=== PATIENT | male | born 1985 | race Caucasian/White ===

== ENCOUNTER 2023-01-21 19:59 | Inpatient (IN) | payer BC, MEDICAID ==
--- NOTE | 2023-01-21 21:30 | ED ---
General Adult HPI - General Chief complaint: Psychiatric Symptoms Stated complaint: Petition Time Seen by Provider: 01/21/23 21:09 Source: patient, police Mode of arrival: ambulatory Limitations: no limitations - History of Present Illness Initial comments: Dictation was produced using [email or web address] dictation software. please excuse any grammatical, word or spelling errors. Chief Complaint: 37-year-old male petition by police for suicidal homicidal behavior History of Present Illness: 37-year-old male presents emergency department for s uicidal and homicidal behavior. Patient allegedly just found out that his ex- was cheating on him with a family friend. He sent pitchers of a gun to his ex-. Enforcement was called and patient was brought to the ER. Patient's petition by [employer] police. Patient at the bedside denies any suicidal or homicidal behavior. Denies any visual or auditory hallucinations. Patient has no medical complaints The ROS documented in this emergency department record has been reviewed and con firmed by me. Those systems with pertinent positive or negative responses have been documented in the HPI. All other systems are other negative and/or noncontributory. PHYSICAL EXAM: General Impression: Alert and oriented x3, not in acute distress HEENT: Normocephalic atraumatic, extra-ocular movements intact, pupils equal and reactive to light bilaterally, mucous membranes moist. Cardiovascular: Heart regular rate and rhythm Chest: Able to complete full sentences, no retractions, no tachypnea Musculoskeletal: Pulses present and equal in all extremities, no peripheral edema Motor: no focal deficits noted Neurological: CN II-XII grossly intact, no focal motor or sensory deficits noted Skin: Intact with no visualized rashes Psych: Flat affect ED course: 37-year-old male presents to the emergency department for suicidal and homicidal behavior signs upon arrival are within acceptable limits. Physical examination is benign. Nursing notes and chart review was performed Was pt. sent in by a medical professional or institution (, PA, SALESFORCE CONSULTANT, urgent care, hospital, or prison...) When possible be specific @ -No Did you speak to anyone other than the patient for history (EMS, parent, family, police, friend...)? What history was obtained from this source @ -Law enforcement Did you review nursing and triage notes (agree or disagree)? Why? @ -I reviewed and agree with nursing and triage notes Were old charts reviewed (outside hosp., previous admission, EMS record, old EKG, old radiological studies, urgent care reports/EKG's, prison records)? Report findings @ -No old charts were reviewed Differential Diagnosis (chest pain, altered mental status, abdominal pain women, abdominal pain men, vaginal bleeding, musculoskeletal, weakness, fever, dyspnea, syncope, headache, dizziness, GI bleed, back pain, seizure, CVA, palpatations, mental health)? @ -Differential Mental Health: Depression, anxiety, bipolar, psychosis, schizophrenia, borderline personality, situational depression, adjustment disorder, behavioral disorder, brain tumor, malingering, substance abuse, encephalopathy, medication reaction, dementia, hypothyroidism, degenerative neurologic disorder, lupus.... This is not meant to be all-inclusive list EKG interpreted by me (3pts min.). @ -None done X-rays interpreted by me (1pt min.). @ -None done CT interpreted by me (1pt min.). @ -None done U/S interpreted by me (1pt. min.). @ -None done What testing was considered but not performed or refused? (CT, X-rays, U/S, labs)? Why? @ -None What meds were considered but not given or refused? Why? @ -None Did you discuss the management of the patient with other professionals (professionals i.e. , PA, SALESFORCE CONSULTANT, lab, RT, psych nurse, social service liaison, product lister, teacher, accounts officer, cyanide case hardener)? Give summary @ -No Was smoking cessation discussed for >3mins.? @ -No Was critical care preformed (if so, how long)? @ -No Were there social determinants of health that impacted care today? How? (Homelessness, low income, unemployed, alcoholism, drug addiction, transportation, low edu. Level, literacy, decrease access to med. care, correction, rehab)? @ -No Was there de-escalation of care discussed even if they declined (Discuss DNR or withdrawal of care, Hospice)? DNR status @ -No What co-morbidities impacted this encounter? (DM, HTN, Smoking, COPD, CAD, Cancer, CVA, ARF, Chemo, Hep., AIDS, mental health diagnosis, sleep apnea, morbid obesity)? @ -None Was patient admitted / discharged? Hospital course, mention meds given and route, prescriptions, significant lab abnormalities, going to OR and other pertinent info. @ -37 Year-old male presents with suicidal behavior. Patient evaluated by EPS and be admitted to inpatient psychiatric unit. Undiagnosed new problem with uncertain prognosis? @ -No Drug Therapy requiring intensive monitoring for toxicity (Heparin, Nitro, Insulin, Cardizem)? @ -No Were any procedures done? @ -No Diagnosis/symptom? Acute, or Chronic, or Acute on Chronic? Uncomplicated (without systemic symptoms) or Complicated (systemic symptoms)? @ -1. Suicidal behavior Side effects of treatment? @ -No Exacerbation, Progression, or Severe Exacerbation? @ -No Poses a threat to life or bodily function? How? (Chest pain, [place], [place], pneumonia, PE, COPD, DKA, ARF, appy, cholecystitis, CVA, Diverticulitis, Homicidal, Suicidal, threat to staff... and all critical care pts) @ -yes - Related Data Home Medications Medication Instructions Recorded Confirmed No Known Home Medications 01/21/23 01/21/23 Allergies Allergy/AdvReac Type Severity Reaction Status Date / Time cat dander Allergy Cough Verified 01/21/23 20:13 dog dander Allergy Cough Verified 01/21/23 20:13 WHITE BIRCH TREE BARK Allergy Unknown Uncoded 01/21/23 20:13 Review of Systems ROS Statement: Those systems with pertinent positive or pertinent negative responses have been documented in the HPI. ROS Other: All systems not noted in ROS Statement are negative. Past Medical History Past Medical History: Diabetes Mellitus Additional Past Medical History / Comment(s): heart murmur History of Any Multi-Drug Resistant Organisms: None Reported Past Surgical History: Adenoidectomy, Orthopedic Surgery Additional Past Surgical History / Comment(s): tendon release rt arm Past Anesthesia/Blood Transfusion Reactions: No Reported Reaction Past Psychological History: No Psychological Hx Reported Smoking Status: Current every day smoker Past Alcohol Use History: Occasional Past Drug Use History: Marijuana - Past Family History Mother Family Medical History: Diabetes Mellitus General Exam Limitations: no limitations Course Vital Signs 01/21/23 01/21/23 20:08 22:51 Temperature 98.3 F Pulse Rate 101 H 98 Respiratory 22 18 Rate Blood Pressure 135/75 132/80 O2 Sat by Pulse 96 97 Oximetry Medical Decision Making - Lab Data Result diagrams: 01/21/23 21:01 01/21/23 21: Lab Results 01/21/23 01/21/23 01/21/23 Range/Units 21:01 21:01 21:01 WBC 11.8 H (3.8-10.6) k/uL RBC 5.69 (4.30-5.90) m/uL Hgb 17.3 (13.0-17.5) gm/dL Hct 50.5 (39.0-53.0) % MCV 88.7 (80.0-100.0) fL MCH 30.5 (25.0-35.0) pg MCHC 34.4 (31.0-37.0) g/dL RDW 12.8 (11.5-15.5) % Plt Count 257 (150-450) k/uL MPV 8.5 Neutrophils % 46 % Lymphocytes % 46 % Monocytes % 4 % Eosinophils % 2 % Basophils % 1 % Neutrophils # 5.4 (1.3-7.7) k/uL Lymphocytes # 5.5 H (1.0-4.8) k/uL Monocytes # 0.5 (0-1.0) k/uL Eosinophils # 0.2 (0-0.7) k/uL Basophils # 0.1 (0-0.2) k/uL Sodium 141 (137-145) mmol/L Potassium 3.8 (3.5-5.1) mmol/L Chloride 102 (98-107) mmol/L Carbon Dioxide 27 (22-30) mmol/L Anion Gap 12 mmol/L BUN 4 L (9-20) mg/dL Creatinine 0.58 L (0.66-1.25) mg/dL Est GFR (CKD-EPI)AfAm >90 (>60 ml/min/1.73 sqM) Est GFR (CKD-EPI)NonAf >90 (>60 ml/min/1.73 sqM) Glucose 343 H (74-99) mg/dL Calcium 9.4 (8.4-10.2) mg/dL Total Bilirubin 0.5 (0.2-1.3) mg/dL AST 27 (17-59) U/L ALT 22 (4-49) U/L Alkaline Phosphatase 128 H (38-126) U/L Total Protein 7.8 (6.3-8.2) g/dL Albumin 4.9 (3.5-5.0) g/dL Serum Alcohol 164 mg/dL Coronavirus (PCR) Not Detected (Not Detectd) Disposition Clinical Impression: Suicidal ideation Disposition: ADMITTED IP TO THIS HOSP Condition: Fair Referrals: None,Stated [REFERRING] - 1-2 days
[2023-01-21 21:52] LABS: Basophils # (A) 0.1 k/uL (0-0.2); Basophils % (A) 1 %; Eosinophils # (A) 0.2 k/uL (0-0.7); Eosinophils % (A) 2 %; HCT 50.5 % (39.0-53.0); HGB 17.3 gm/dL (13.0-17.5); Lymphocytes # (A) 5.5 k/uL (1.0-4.8); MCH 30.5 pg (25.0-35.0); MCHC 34.4 g/dL (31.0-37.0); MCV 88.7 fL (80.0-100.0); Mean Platelet Volume 8.5; Monocytes # (A) 0.5 k/uL (0-1.0); Monocytes % (A) 4 %; Neutrophils # (A) 5.4 k/uL (1.3-7.7); Neutrophils % (A) 46 %; Platelet Count 257 k/uL (150-450); RBC 5.69 m/uL (4.30-5.90); RDW 12.8 % (11.5-15.5); WBC 11.8 k/uL (3.8-10.6)
[2023-01-21 22:18] LABS: ALT 22 U/L (4-49); AST 27 U/L (17-59); African American GFR (CKD) >90 (>60 ml/min/1.73 sqM); Albumin 4.9 g/dL (3.5-5.0); Alkaline Phosphatase 128 U/L (38-126); Anion Gap 12 mmol/L; Blood Urea Nitrogen 4 mg/dL (9-20); Calcium 9.4 mg/dL (8.4-10.2); Carbon Dioxide 27 mmol/L (22-30); Chloride 102 mmol/L (98-107); Glucose 343 mg/dL (74-99); Non-African American GFR(CKD) >90 (>60 ml/min/1.73 sqM); Potassium 3.8 mmol/L (3.5-5.1); Sodium 141 mmol/L (137-145); Total Bilirubin 0.5 mg/dL (0.2-1.3); Total Protein 7.8 g/dL (6.3-8.2)
[2023-01-21 22:23] LABS: Alcohol 164 mg/dL
[2023-01-21 23:00] LABS: Lymphocytes % (A) 46 %
[2023-01-22] MEDS ORDERED: ACETAMINOPHEN TAB 325 MG TAB PO PRN (06:06)
[2023-01-22] MEDS ORDERED: MAGNESIUM HYDROXIDE 2,400 MG/10 ML CUP PO PRN (06:06)
[2023-01-22] MEDS ORDERED: MAG HYDROX/AL HYDROX/SIMETH 30 ML CUP PO PRN (06:06)
[2023-01-22] MEDS ORDERED: LORazepam 1 MG TAB PO PRN ×4 (06:06→06:15)
[2023-01-22] MEDS ORDERED: LORazepam 2 MG/ML INJ IM PRN (06:15)
[2023-01-22 07:59] LABS: Glucose,Whole Blood 233 mg/dL (70-110)
--- NOTE | 2023-01-22 11:16 | P.HP ---
Psychiatric H&P - . H&P Date: 01/22/23 History & Physical: Allergies Allergy/AdvReac Type Severity Reaction Status Date / Time cat dander Allergy Cough Verified 01/22/23 07:58 dog dander Allergy Cough Verified 01/22/23 07:58 WHITE BIRCH [place] BARK Allergy Unknown Uncoded 01/22/23 07:58 Vital Signs Temp 98.2 F 01/22/23 06:46 Pulse 81 01/22/23 06:46 Resp 18 01/22/23 06:46 BP 134/88 01/22/23 06:46 Pulse Ox 97 01/22/23 06:46 FiO2 Intake & Output 01/21/23 01/22/23 01/22/23 18:59 06:59 18:59 Weight 58.8 kg Laboratory Last Values WBC 11.8 k/uL (3.8-10.6) H 01/21/23 21:01 RBC 5.69 m/uL (4.30-5.90) 01/21/23 21:01 Hgb 17.3 gm/dL (13.0-17.5) 01/21/23 21:01 Hct 50.5 % (39.0-53.0) 01/21/23 21:01 MCV 88.7 fL (80.0-100.0) 01/21/23 21:01 MCH 30.5 pg (25.0-35.0) 01/21/23 21:01 MCHC 34.4 g/dL (31.0-37.0) 01/21/23 21:01 RDW 12.8 % (11.5-15.5) 01/21/23 21:01 Plt Count 257 k/uL (150-450) 01/21/23 21:01 MPV 8.5 01/21/23 21:01 Neutrophils % 46 % 01/21/23 21:01 Lymphocytes % 46 % 01/21/23 21:01 Monocytes % 4 % 01/21/23 21:01 Eosinophils % 2 % 01/21/23 21:01 Basophils % 1 % 01/21/23 21:01 Neutrophils # 5.4 k/uL (1.3-7.7) 01/21/23 21:01 Lymphocytes # 5.5 k/uL (1.0-4.8) H 01/21/23 21:01 Monocytes # 0.5 k/uL (0-1.0) 01/21/23 21:01 Eosinophils # 0.2 k/uL (0-0.7) 01/21/23 21:01 Basophils # 0.1 k/uL (0-0.2) 01/21/23 21:01 Sodium 141 mmol/L (137-145) 01/21/23 21:01 Potassium 3.8 mmol/L (3.5-5.1) 01/21/23 21: Chloride 102 mmol/L (98-107) 01/21/23 21:01 Carbon Dioxide 27 mmol/L (22-30) 01/21/23 21:01 Anion Gap 12 mmol/L 01/21/23 21:01 BUN 4 mg/dL (9-20) L 01/21/23 21:01 Creatinine 0.58 mg/dL (0.66-1.25) L 01/21/23 21:01 Est GFR (CKD-EPI)AfAm >90 (>60 ml/min/1.73 sqM) 01/21/23 21:01 Est GFR (CKD-EPI)NonAf >90 (>60 ml/min/1.73 sqM) 01/21/23 21:01 Glucose 343 mg/dL (74-99) H 01/21/23 21:01 POC Glucose (mg/dL) 233 mg/dL (70-110) H 01/22/23 07:58 POC Glu Endoscopy Nurse LIZ Radha Bean 01/22/23 07:58 Calcium 9.4 mg/dL (8.4-10.2) 01/21/23 21:01 Total Bilirubin 0.5 mg/dL (0.2-1.3) 01/21/23 21:01 AST 27 U/L (17-59) 01/21/23 21:01 ALT 22 U/L (4-49) 01/21/23 21:01 Alkaline Phosphatase 128 U/L (38-126) H 01/21/23 21:01 Total Protein 7.8 g/dL (6.3-8.2) 01/21/23 21:01 Albumin 4.9 g/dL (3.5-5.0) 01/21/23 21:01 Serum Alcohol 164 mg/dL 03/17/23 21:01 Coronavirus (PCR) Not Detected (Not Detectd) 01/21/23 21:01 01/22/23 09:12 IDENTIFYING DATA: Patient is a , employed, 37-year-old male who is presenting with suicidal ideation and alcohol use. HPI: Patient was brought into the emergency department by the police after his sister called 911 over receiving a text sent by the patient, while intoxicated from [employer], showing a gun from a website and stating he was going to blow his head off if he had a gun. Recent stressors include separation from his . It appears that while patient was in the ED, he was minimizing his statements once sober. However, he told the ED physician that "he would do or say anything to get out of here ". Patient was seen in interview room this morning. He reports that his left a few months ago and took the children with her. He states that he has been feeling sad as a result and coping with this change in his life. He reports crying often and states he has been coping by drinking more than usual. He currently reports drinking a pint of alcohol twice a month. He says his baseline is sleeping 4-5 hours at night and this is because he is trying to "distract himself "by playing video games. Patient currently minimizing his suicidal statements and claims that he was only considering purchasing the gun. However, when statements concerns may by his sister were discussed with him, patient does not deny that he made suicidal statements. He says "is it illegal to feel suicidal?" He reports low energy and drinks a Monster drink daily. He denies anhedonia or worthlessness. He reports anxiety about finances among other concerns. He endorses symptoms of anxiety including restlessness, feeling on edge, and trouble relaxing. Patient currently denies suicidal ideation and homicidal ideation, intent, or plan. Patient is minimizing recent suicidal ideation. He is future oriented towards spending time with his children but admits he feels lonely after work because he is by himself. He denies auditory and visual hallucinations. PSYCH HX: Previous psychiatrist: Says he saw someone months ago but did not take the prescribed medication after some time because it caused him to become more tearful. He cannot recall name of the medication Hospitalizations: Denies NSSI: Denies SA: He says that a few months ago, he went into the shower with a knife intent of cutting himself. But he says bunghole borer were called at the time. PMH: Denies chronic medical conditions. ALLERGIES: NKDA PCP: Rupal Duvall Head injuries: Head injury and resulting LOC when he was 19 years old Seizures: Denies SUBSTANCE HX: Alcohol: Once to twice a month. Drinks a pint of alcohol Tobacco: 1.5 ppd Cannabis: One joint daily Denies using other substances SOCIAL/LEGAL HX: He grew up with his mother and step-father. He says he never knew his biological father. He has 1 sister and 1 brother. 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 FAM PSYCH HX: Sister - depression Suicide attempts: Mother (using Xanax and alcohol use) MENTAL STATUS EXAM: General Appearance: Patient appears to be stated age is alert, directable, and superficially cooperative. Patient appears to have poor hygiene and grooming. Behavior: Patient is seated without any agitated behavior. Speech: Patient's speech is fluent and nonpressured. Mood/Affect: Patient reports their mood is depressed and objectively irritable and depressed, affect is congruent, tearful. Suicidality/Homicidality: Patient denies having any homicidal ideation intent or plan. Denies any suicidal ideation intent or plan although using defense mechanisms of minimization and denial Perceptions: Patient denies any visual hallucinations and denies any auditory hallucinations Though content/process: There is no evidence of any delusional thought content and thought process is linear and goal-directed. Fixated on discharge and externalizing blame Memory and concentration: AOX3, grossly intact for the purposes of this session. Judgment and insight: Poor and impulsive STRENGTHS/WEAKNESSES: Strength is employment and weakness is poor insight INTELLECT: average IMPRESSIONS: Adjustment disorder with depressed mood Anxiety disorder, unspecified Alcohol use disorder, abuse Nicotine use disorder Cannabis use disorder PLAN: -Patient is admitted under involuntary status to MHU for stabilization of psychiatric symptoms and safety. Patient has not signed adult voluntary form and medication consent and is placed in patient's chart. -Discussed prospect of being on medications but patient is not willing to consider at this time. Provided handouts on Zoloft, Lexapro, and Celexa - Ativan PRN for agitation or anxiety - Thiamin, folate for alcohol use -Patient was counselled on substance abuse but is precontemplative. Motivational interviewing. -Patient was informed of the risks, benefits and side effects of the medication -Internal Medicine consult to perform medical evaluation and physical. -SW on board for discharge planning. Encourage patient to participate in groups to work on coping skills. 01/22/23 10:23
[2023-01-22] MEDS: FOLIC ACID 1 MG TAB PO SCH (11:45)
[2023-01-22] MEDS: MULTIVITAMINS, THERA 1 EACH TAB PO SCH (11:45)
[2023-01-22] MEDS: THIAMINE 100 MG TAB PO SCH (11:45)
[2023-01-22] MEDS: NICOTINE 14MG/24HR PATCH TRANSDERM SCH (11:46)
[2023-01-22 13:12] LABS: Glucose,Whole Blood 196 mg/dL (70-110)
[2023-01-22] MEDS: INSULIN ASPART (NovoLOG) 100 UNIT/ML VIAL SQ SCH ×3 (13:56→20:46)
[2023-01-22 18:01] LABS: Glucose,Whole Blood 172 mg/dL (70-110)
[2023-01-22 20:12] LABS: Glucose,Whole Blood 290 mg/dL (70-110)
[2023-01-22 20:50] LABS: Chol/HDL Ratio 5.83 Ratio; LDL Cholesterol,Calculated 143.1 mg/dL (0.0-131.0)
--- NOTE | 2023-01-23 00:34 | P.CONS ---
History of Present Illness - Reason for Consult Consult date: 01/22/23 - History of Present Illness The patient is a 37-year-old male with a PMH of type II DM who was brought into the emergency room under police custody for suicidal ideation. The patient had reportedly found out that his ex- was cheating on her with a family friend and that he subsequently sent pictures of a gun to his ex-. The patient states that he was previously informed that he was diabetic and was started on a non-insulin injection based therapy which he did not tolerate. He states that he developed dizziness and discontinued it after a single use. The patient is hesitant about starting any new medications as he does not believe he truly has diabetes. He denied any physical complaints at the time of interview. Denied experiencing chest discomfort, shortness of breath, fever, chills, cough, nausea, vomiting, abdominal pain, diarrhea. The patient reports occasional social drinking. Review of systems: Pertinent positives and negatives as discussed in HPI, a complete review of systems was performed and all other systems are negative. Physical examination: General: non toxic, no distress, appears older than stated age, normal weight Derm: no unusual rashes/lesions, no unusual ecchymoses, warm, dry Head: atraumatic, normocephalic, symmetric Eyes: EOMI, no lid lag, anicteric sclera ENT: Nose and ears atraumatic, no thrush, no pharyngeal erythema Neck: trachea midline, supple Mouth: no lip lesion, mucus membranes moist Cardiovascular: S1S2 reg, no murmur, no edema Lungs: CTA bilateral, no rhonchi, no rales , no accessory muscle use Abdominal: soft, nontender to palpation, no guarding Ext: no gross muscle atrophy, no contractures, Neuro: No gross focal neuro deficits noted Psych: Alert, oriented, appropriate affect Assessment: Type II DM, poorly controlled Suicidal and homicidal ideation Hyperlipidemia Imaging: None performed Data Review: Laboratory evaluation reviewed with leukocytosis of 11.8, BUN 4, creatinine 0.58, glucose 243, hemoglobin A1c 11.4, alk phos 128, HDL 37, and LDL 143. Plan: Discussed with the patient in extensive detail the long-term risks of poorly controlled diabetes mellitus. The patient is reluctant to start any new medications and states that he will do whatever he needs to in order to leave the mental health unit but will likely not continue anything afterwards. Advised patient on importance of starting at the minimum a once daily long- acting insulin. Start patient on Levemir 10 units every morning Provide patient with blood glucose monitoring Start patient on Lipitor 20 mg by mouth daily at bedtime Defer management of suicidal and homicidal ideation to primary psychiatry service Stressed with the patient the importance of regular follow-up with PCP for medication adjustment Thank you for allowing us to participate in the care of this patient. We will follow peripherally. Do not hesitate to contact us with questions. Someone can be reached from the [facility] hospitalist group at all hours of the day at [phone]. Past Medical History Past Medical History: Diabetes Mellitus, Thyroid Disorder Additional Past Medical History / Comment(s): heart murmur History of Any Multi-Drug Resistant Organisms: None Reported Past Surgical History: Adenoidectomy, Orthopedic Surgery Additional Past Surgical History / Comment(s): tendon release rt arm Past Anesthesia/Blood Transfusion Reactions: No Reported Reaction Past Psychological History: No Psychological Hx Reported Smoking Status: Current every day smoker Past Alcohol Use History: Occasional Past Drug Use History: Marijuana - Past Family History Mother Family Medical History: Diabetes Mellitus Medications and Allergies Home Medications Medication Instructions Recorded Confirmed Type No Known Home Medications 01/21/23 01/22/23 History Allergies Allergy/AdvReac Type Severity Reaction Status Date / Time cat dander Allergy Cough Verified 01/22/23 07:58 dog dander Allergy Cough Verified 01/22/23 07:58 WHITE B[place]CH [place] BARK Allergy Unknown Uncoded 01/22/23 07:58 Physical Exam Vitals: Vital Signs Temp Pulse Pulse Resp BP BP Pulse Ox 01/22/23 06:46 98.2 F 81 18 134/88 97 01/21/23 22:51 98 18 132/80 97 Intake and Output 01/22/23 01/22/23 01/22/23 06:59 14:59 22:59 Other: Weight 58.8 kg 58.8 kg Results CBC & Chem 7: 01/21/23 21:01 01/21/23 21:01 Labs: Abnormal Lab Results - Last 24 Hours (Table) 01/21/23 01/21/23 01/21/23 Range/Units 21:01 21:01 21:01 WBC 11.8 H (3.8-10.6) k/uL Lymphocytes # 5.5 H (1.0-4.8) k/uL POC Glucose (mg/dL) (70-110) mg/dL Hemoglobin A1c 11.4 H (0.0-6.0) % Triglycerides 200.00 H (0.00-149.00) mg/dL Cholesterol 221.00 H (0.00-200.00) mg/dL LDL Cholesterol, Calc 143.1 H (0.0-131.0) mg/dL HDL Cholesterol 37.90 L (40.00-60.00) mg/dL 01/22/23 01/22/23 01/22/23 Range/Units 07:58 13:10 17:59 WBC (3.8-10.6) k/uL Lymphocytes # (1.0-4.8) k/uL POC Glucose (mg/dL) 233 H 196 H 172 H (70-110) mg/dL Hemoglobin A1c (0.0-6.0) % Triglycerides (0.00-149.00) mg/dL Cholesterol (0.00-200.00) mg/dL LDL Cholesterol, Calc (0.0-131.0) mg/dL HDL Cholesterol (40.00-60.00) mg/dL 01/22/23 Range/Units 20:10 WBC (3.8-10.6) k/uL Lymphocytes # (1.0-4.8) k/uL POC Glucose (mg/dL) 290 H (70-110) mg/dL Hemoglobin A1c (0.0-6.0) % Triglycerides (0.00-149.00) mg/dL Cholesterol (0.00-200.00) mg/dL LDL Cholesterol, Calc (0.0-131.0) mg/dL HDL Cholesterol (40.00-60.00) mg/dL
[2023-01-23 07:46] LABS: Glucose,Whole Blood 233 mg/dL (70-110)
[2023-01-23] MEDS: NICOTINE 14MG/24HR PATCH TRANSDERM SCH (09:11)
[2023-01-23] MEDS: INSULIN ASPART (NovoLOG) 100 UNIT/ML VIAL SQ SCH ×4 (09:11→20:03)
[2023-01-23] MEDS: INSULIN DETEMIR (LEVEMIR) 100 UNIT/ML SYR SQ SCH (09:11)
[2023-01-23] MEDS: MULTIVITAMINS, THERA 1 EACH TAB PO SCH (09:11)
[2023-01-23] MEDS: THIAMINE 100 MG TAB PO SCH (09:11)
[2023-01-23] MEDS: FOLIC ACID 1 MG TAB PO SCH (09:11)
--- NOTE | 2023-01-23 14:39 | P.PN ---
Progress Note - Text Progress Note Date: 01/23/23 Interval History: Patient was seen bedside this AM. Patient has been refusing all of his medica tions including insulin and vitamin. Patient to see does not want to be on insulin and would prefer to discuss this with his outpatient provider. However, he endorses poor compliance with diabetic medication outpatient. He says he is feeling "depressed "from being hospitalized. Patient continues to have poor insight. He says he briefly looked over the medication handouts but has not carefully read them. Patient is ambiguous about medication despite long discussion. He is being vaguely and superficially agreeable with taking the medication but is only willing to consider this due to his fixation on discharge. He claims to be concerned about taking any medication because his father from cancer. This provider discussed that any side effect and concern would be discussed with the doctor and asked him to report if he is noticing any concerns. At this time patient denies any current suicidal or homicidal ideation, intent or plan. Patient denies any auditory, visual hallucinations and denies any paranoia or delusions. Patient is not medication compliant. Mental Status Exam: General Appearance: Patient appears to be stated age is alert, directable, and superficially cooperative. Patient appears to have poor hygiene and grooming. Behavior: Patient is seated without any agitated behavior. Speech: Patient's speech is fluent and nonpressured. Mood/Affect: Patient reports their mood is depressed and objectively irritable and depressed, affect is congruent, tearful. Suicidality/Homicidality: Patient denies having any homicidal ideation intent or plan. Denies any suicidal ideation intent or plan although using defense mechanisms of minimization and denial Perceptions: Patient denies any visual hallucinations and denies any auditory hallucinations Though content/process: There is no evidence of any delusional thought content and thought process is linear and goal-directed. Fixated on discharge and externalizing blame Memory and concentration: AOX3, grossly intact for the purposes of this session. Judgment and insight: Poor and impulsive Assessment Adjustment disorder with depressed mood Anxiety disorder, unspecified Alcohol use disorder, abuse Nicotine use disorder Cannabis use disorder PLAN: -Patient is admitted under involuntary status to MHU for stabilization of psychiatric symptoms and safety. Patient has not signed adult voluntary form and medication consent and is placed in patient's chart. - Medication: Start Zoloft 25 mg daily - Ativan PRN for agitation or anxiety - Thiamin, folate for alcohol use -Patient was counselled on substance abuse but is precontemplative. Motivational interviewing. -Patient was informed of the risks, benefits and side effects of the medication -Internal Medicine consult to perform medical evaluation and physical. -SW on board for discharge planning. Encourage patient to participate in groups to work on coping skills.
[2023-01-23 17:43] LABS: Glucose,Whole Blood 255 mg/dL (70-110)
[2023-01-23] MEDS: ATORVASTATIN 20 MG TAB PO SCH (20:39)
[2023-01-24 07:51] LABS: Glucose,Whole Blood 265 mg/dL (70-110)
[2023-01-24] MEDS: INSULIN DETEMIR (LEVEMIR) 100 UNIT/ML SYR SQ SCH ×2 (09:09→13:31)
[2023-01-24] MEDS: INSULIN ASPART (NovoLOG) 100 UNIT/ML VIAL SQ SCH ×4 (09:09→20:19)
[2023-01-24] MEDS: MULTIVITAMINS, THERA 1 EACH TAB PO SCH (09:09)
[2023-01-24] MEDS: FOLIC ACID 1 MG TAB PO SCH (09:09)
[2023-01-24] MEDS: NICOTINE 14MG/24HR PATCH TRANSDERM SCH (09:09)
[2023-01-24] MEDS: THIAMINE 100 MG TAB PO SCH ×2 (09:10→18:02)
[2023-01-24] MEDS: SERTRALINE 25 MG TAB PO SCH ×2 (09:10→18:02)
[2023-01-24 13:21] LABS: Glucose,Whole Blood 297 mg/dL (70-110)
[2023-01-24 13:41] VITALS: BMI 18.8
[2023-01-24] MEDS ORDERED: MELATONIN 5 MG TABLET PO PRN (13:51)
--- NOTE | 2023-01-24 13:51 | P.PN ---
Progress Note - Text Progress Note Date: 01/24/23 Interval History: Patient was seen wandering the hallways today and was agreeable to speak to wr dali in the office. Patient claims that it is a mistake for him to be in the hospital and claims that "I was never can hurt myself". He appears to have very poor judgment and insight. We spoke about his elevated blood sugars and patient claims that he does not trust a lot of medications and understands the risks of diabetic complications. He also has been refusing the Zoloft and states that "I just don't need medications". We spoke about the court process and he was undecided whether he was going to sign a deferral or not. He states that his mood is "fine" however affect was incongruent and fairly focused on discharge. Minimizing his need for hospitalization and medications. Denying any anxiety at this time. At this time patient denies any current suicidal or homicidal ideation, intent or plan. Patient denies any auditory, visual hallucinations. Patient is not medication compliant. states that he slept fairly last night. Mental Status Exam: General Appearance: Patient appears to be thin, stated age is alert, superficially cooperative. Argumentative at times. Patient appears to have poor hygiene and grooming. Behavior: Patient is seated without any agitated behavior. He manages Speech: Patient's speech is fluent and nonpressured. [place] Mood/Affect: Patient reports their mood is "fine" affect is incongruent and constricted. Suicidality/Homicidality: Patient denies having any homicidal ideation intent or plan. Denies any suicidal ideation intent or plan Perceptions: Patient denies any visual hallucinations and denies any auditory hallucinations Though content/process: There is no evidence of any delusional thought content and thought process is linear and goal-directed. Fixated on discharge and externalizing blame Memory and concentration: AOX3, grossly intact for the purposes of this session. Judgment and insight: Poor and impulsive Assessment Adjustment disorder with depressed mood Anxiety disorder, unspecified Alcohol use disorder, abuse Nicotine use disorder Cannabis use disorder PLAN: -Patient is admitted under involuntary status to [facility]HU for stabilization of psychiatric symptoms and safety. Patient has not signed adult voluntary form and medication consent and is placed in patient's chart. - Medication: continue Zoloft 25 mg daily, start naltrexone 50 mg daily for etoh cravings. melatonin prn for sleep. - Ativan PRN for agitation or anxiety - Thiamin, folate for alcohol use -SW on board for discharge planning. Encourage patient to participate in groups to work on coping skills. will monitor BG and continues to encourage inuslin and medicine recs. will await deferral and court date.
[2023-01-24 17:50] LABS: Glucose,Whole Blood 204 mg/dL (70-110)
[2023-01-24 20:19] LABS: Glucose,Whole Blood 259 mg/dL (70-110)
[2023-01-24] MEDS: ATORVASTATIN 20 MG TAB PO SCH (20:20)
[2023-01-25 07:53] LABS: Glucose,Whole Blood 237 mg/dL (70-110)
[2023-01-25] MEDS: INSULIN DETEMIR (LEVEMIR) 100 UNIT/ML SYR SQ SCH (08:21)
[2023-01-25] MEDS: INSULIN ASPART (NovoLOG) 100 UNIT/ML VIAL SQ SCH ×4 (08:21→20:21)
[2023-01-25] MEDS: THIAMINE 100 MG TAB PO SCH (08:22)
[2023-01-25] MEDS: SERTRALINE 25 MG TAB PO SCH (08:22)
[2023-01-25] MEDS: MULTIVITAMINS, THERA 1 EACH TAB PO SCH (08:22)
[2023-01-25] MEDS: NALTREXONE HCL 50 MG TAB PO SCH (08:22)
[2023-01-25] MEDS: FOLIC ACID 1 MG TAB PO SCH (08:22)
[2023-01-25] MEDS: NICOTINE 14MG/24HR PATCH TRANSDERM SCH (08:22)
--- NOTE | 2023-01-25 10:26 | P.PN ---
Progress Note - Text Progress Note Date: 01/25/23 Interval History: Patient was seen wandering the hallways today and was agreeable to speak to wr dali in the office. Patient was near the nurse's desk waiting for auto service writer. He continues to appear to be mildly disheveled today in appearance and continues to be fairly focused on discharge. He does appear to have mild improvement in his insight and judgment however he continues to be fairly limited. He states that he is willing to take his medications and spoke with the trial attorney yesterday and signed a deferral. He also claims that she took the insulin yesterday and also this morning however states that "it's not making much of a difference". He continues to minimize and deny any depression or anxiety. He continues to also minimize need for hospitalization and treatment however is focused on discharge. He states that he slept fairly last night. He was agreeable to have his medication increased for tomorrow. States that he is going to some groups. He claimed to have a fair appetite. At this time patient denies any current suicidal or homicidal ideation, intent or plan. Patient denies any auditory, visual hallucinations. Mental Status Exam: General Appearance: Patient appears to be thin, stated age is alert, superficially cooperative, improving mildly. Patient appears to have poor hygiene and grooming. Behavior: Patient is seated without any agitated behavior. Superficial, cooperative. Speech: Patient's speech is fluent and nonpressured. [place] Mood/Affect: Patient reports their mood is "fine" affect is congruent and constricted. Suicidality/Homicidality: Patient denies having any homicidal ideation intent or plan. Denies any suicidal ideation intent or plan Perceptions: Patient denies any visual hallucinations and denies any auditory hallucinations Though content/process: There is no evidence of any delusional thought content and thought process is linear and goal-directed. Continues to be focused on discharge Memory and concentration: AOX3, grossly intact for the purposes of this session. Judgment and insight: Poor/limited, improving mildly Assessment Adjustment disorder with depressed mood Anxiety disorder, unspecified Alcohol use disorder, abuse Nicotine use disorder Cannabis use disorder PLAN: -Patient is admitted under involuntary status to MHU for stabilization of psychiatric symptoms and safety. Patient has not signed adult voluntary form and medication consent and is placed in patient's chart. - Medication: Increase Zoloft 50 mg daily, start naltrexone 50 mg daily for etoh cravings. melatonin 6mg qhs for sleep. - Ativan PRN for agitation or anxiety - Thiamin, folate for alcohol use -SW on board for discharge planning. Encourage patient to participate in groups to work on coping skills. will monitor BG and continues to encourage inuslin and medicine recs. patient deferred with trial attorney. possible dischgarge tomorrow
[2023-01-25 12:49] LABS: Glucose,Whole Blood 231 mg/dL (70-110)
[2023-01-25 17:45] LABS: Glucose,Whole Blood 170 mg/dL (70-110)
[2023-01-25 20:01] LABS: Glucose,Whole Blood 237 mg/dL (70-110)
[2023-01-25] MEDS: ATORVASTATIN 20 MG TAB PO SCH (20:24)
[2023-01-25] MEDS ORDERED: MELATONIN 3 MG TABLET PO SCH (21:00)
[2023-01-26 07:09] VITALS: BP 131/63; PULSE 54; RESP 14; TEMP 98.2
[2023-01-26 07:50] LABS: Glucose,Whole Blood 216 mg/dL (70-110)
[2023-01-26] MEDS: NALTREXONE HCL 50 MG TAB PO SCH (08:06)
[2023-01-26] MEDS: MULTIVITAMINS, THERA 1 EACH TAB PO SCH (08:07)
[2023-01-26] MEDS: FOLIC ACID 1 MG TAB PO SCH (08:07)
[2023-01-26] MEDS: THIAMINE 100 MG TAB PO SCH (08:08)
[2023-01-26] MEDS: INSULIN DETEMIR (LEVEMIR) 100 UNIT/ML SYR SQ SCH (08:09)
[2023-01-26] MEDS: INSULIN ASPART (NovoLOG) 100 UNIT/ML VIAL SQ SCH ×2 (08:10→13:59)
[2023-01-26] MEDS ORDERED: SERTRALINE 50 MG TAB PO SCH (09:00)
--- NOTE | 2023-01-26 10:40 | P.DS ---
Providers Date of admission: 01/22/23 05:59 Expected date of discharge: 01/26/23 Attending physician: Daniel Lei MD Consults: 01/22/23 06:06 Consult Physician Routine Consulting Provider: Sae Cadena Consult Reason/Comments: H&P for mental health admission Do you want consulting provider notified?: Yes Primary care physician: Micah Duvall - Discharge Diagnosis(es) (1) Adjustment disorder with depressed mood Current Visit: Yes Status: Acute Priority: High (2) Alcohol use disorder Current Visit: Yes Status: Acute Priority: High (3) Anxiety disorder Current Visit: Yes Status: Acute Priority: Medium (4) Nicotine dependence Current Visit: Yes Status: Acute Priority: Low (5) Cannabis use disorder Current Visit: Yes Status: Acute Priority: Low Hospital Course: Admission HPI: Admission note was completed by Dr Chauhan "[Patient is a , employed, 37-year-old male who is presenting with suicidal ideation and alcohol use. Patient was brought into the emergency department by the police after his sister called 911 over receiving a text sent by the patient, while intoxicated from alcohol, showing a gun from a website and stating he was going to blow his head off if he had a gun. Recent stressors include separation from his . It appears that while patient was in the ED, he was minimizing his statements once sober. However, he told the ED physician that "he would do or say anything to get out of here ". Patient was seen in interview room this morning. He reports that his left a few months ago and took the children with her. He states that he has been feeling sad as a result and coping with this change in his life. He reports crying often and states he has been coping by drinking more than usual. He currently reports drinking a pint of alcohol twice a month. He says his baseline is sleeping 4-5 hours at night and this is because he is trying to "distract himself "by playing video games. Patient currently minimizing his suicidal statements and claims that he was only considering purchasing the gun. However, when statements concerns may by his sister were discussed with him, patient does not deny that he made suicidal statements. He says "is it illegal to feel suicidal?" He reports low energy and drinks a Monster drink daily. He denies anhedonia or worthlessness. He reports anxiety about finances among other concerns. He endorses symptoms of anxiety including restlessness, feeling on edge, and trouble relaxing. Patient currently denies suicidal ideation and homicidal ideation, intent, or plan. Patient is minimizing recent suicidal ideation. He is future oriented towards spending time with his children but admits he feels lonely after work because he is by himself. He denies auditory and visual hallucinations.]" Hospital course: Upon admission to the unit patient was [admitted involuntarily on a petition and certificate and a second certificate was completed and faxed with the courts]. [Patient ended up signing a deferral with the patent attorney and agreeing to treatment.] [] Patient was initially uncooperative however with time and treatment he got along well with other patients on the unit and followed unit protocol. Patient was compliant with the medications and denied any side effects throughout hospital course. Patient was started on [naltrexone po 50 mg daily for etoh cravings, zoloft 50 mg daily for mood/anxiety, melatonin 6 mg qhs for sleep]. Patient spoke of [his] stressors and engaged in therapy both group and individual. Patient was also seen by medical team for history and physical exam. [Patient was started on long acting and short acting insulin to helpcontrol BGs, will ask medicine to recommend outpatient doses of insulin.]Throughout the course of the hospitalization patient gradually improved with regards to [mood, anxiety], suicidal thoughts, sleep and [returned back to their baseline level of functioning]. On the day of discharge patient denied any suicidal or homicidal ideations intent or plan denied any auditory or visual hallucinations. Patient endorsed wanting to live for [his health and family/kids.] The patient denied any access to guns or weapons. Patient denied any paranoia and did not endorse any delusions. Patient does have a significant history of substance abuse [and] was counseled on abstaining from all substances including alcohol and marijuana. patient was agreeable to be started on anti cravings meds. [Patient was offered however declined inpatient substance-abuse rehab.] Patient was also counseled on the medications and need for regular compliance and was encouraged to follow-up with their outpatient appointment for mental health and also for primary care. [Prior to discharge a family meeting will be arranged by social science teacher to answer any questions and ensure safety upon discharge.] SW also ensure that there are no guns and weapons in the house. Mental status exam: General Appearance: Patient appears to be [thin, ]stated age is alert, pleasant, and cooperative. Patient is in no acute distress and has improved hygiene and grooming Behavior: Patient is calmly seated without any agitated behavior. Speech: Patient's speech is fluent and nonpressured. Mood/Affect: Patient reports their mood is "[good]", affect is congruent and euthymic. Suicidality/Homicidality: Patient denies having any suicidal or homicidal ideation intent or plan. Perceptions: Patient denies any auditory or visual hallucinations. Though content/process: There is no evidence of any delusional thought content and thought process is linear and goal-directed. [more future oriented] Memory and concentration: AOX3, grossly intact for the purposes of this session. Can spell "WORLD" backwards correctly. Judgment and insight: improved with guarded prognosis Impression: adjustment disorder with depressed mood anxiety disorder NOS alcohol use disorder cannabis use disorder [Nicotine dependence] Plan: -Continue with discharge today as patient has improved and stabilized psychiatrically and is not currently an imminent threat to [himself] and/or others. [Patient will remain at chronically elevated risk for harm to self and/or others due to his impulsivity and substance abuse.] -Continue medications: []zoloft 50 mg daily for mood/anxiety, naltrexone 50 mg daily for etoh cravings. melatonin 6 mg qhs for sleep. -Patient was counseled on the need for medication compliance and appropriate follow-up at mental health and also primary care for medical issues. Patient verbalized understanding and agreed. -Social work to [arrange for and conduct family meeting to ensure safety upon discharge and answer any questions/concerns.] Social work also to arrange for patients follow up appointments for psychiatric care along with follow up with primary care provider. -Patient counseled on abstaining from recreational drugs and marijuana and alcohol. Was informed/educated on the adverse effects on their physical and mental health. [Patient verbally agreed and understood]. [Patient was offered substance abuse treatment however declined at this time.] He is agreeable to be onanti cravings meds. -Patient was instructed to return to the hospital or seek immediate medical care if their psychiatric or medical symptoms do worsen or reoccur. Allergies Allergy/AdvReac Type Severity Reaction Status Date / Time cat dander Allergy Cough Verified 01/22/23 07:58 dog dander Allergy Cough Verified 01/22/23 07:58 WHITE BIRCH T[place] BARK Allergy Unknown Uncoded 01/22/23 07:58 Laboratory Results WBC 11.8 k/uL (3.8-10.6) H 01/21/23 21:01 RBC 5.69 m/uL (4.30-5.90) 01/21/23 21:01 Hgb 17.3 gm/dL (13.0-17.5) 01/21/23 21: Hct 50.5 % (39.0-53.0) 01/21/23 21: MCV 88.7 fL (80.0-100.0) 01/21/23 21: MCH 30.5 pg (25.0-35.0) 01/21/23 21: MCHC 34.4 g/dL (31.0-37.0) 01/21/23 21: RDW 12.8 % (11.5-15.5) 01/21/23 21: Plt Count 257 k/uL (150-450) 01/21/23 21:01 MPV 8.5 01/21/23 21:01 Neutrophils % 46 % 01/21/23 21:01 Lymphocytes % 46 % 01/21/23 21:01 Monocytes % 4 % 01/21/23 21:01 Eosinophils % 2 % 01/21/23 21:01 Basophils % 1 % 01/21/23 21:01 Neutrophils # 5.4 k/uL (1.3-7.7) 01/21/23 21:01 Lymphocytes # 5.5 k/uL (1.0-4.8) H 01/21/23 21:01 Monocytes # 0.5 k/uL (0-1.0) 01/21/23 21:01 Eosinophils # 0.2 k/uL (0-0.7) 01/21/23 21:01 Basophils # 0.1 k/uL (0-0.2) 01/21/23 21:01 Sodium 141 mmol/L (137-145) 01/21/23 21:01 Potassium 3.8 mmol/L (3.5-5.1) 01/21/23 21: Chloride 102 mmol/L (98-107) 01/21/23 21:01 Carbon Dioxide 27 mmol/L (22-30) 01/21/23 21:01 Anion Gap 12 mmol/L 01/21/23 21:01 BUN 4 mg/dL (9-20) L 01/21/23 21:01 Creatinine 0.58 mg/dL (0.66-1.25) L 01/21/23 21:01 Est GFR (CKD-EPI)AfAm >90 (>60 ml/min/1.73 sqM) 01/21/23 21:01 Est GFR (CKD-EPI)NonAf >90 (>60 ml/min/1.73 sqM) 01/21/23 21: Glucose 343 mg/dL (74-99) H 01/21/23 21:01 POC Glucose (mg/dL) 216 mg/dL (70-110) H 01/26/23 07:49 POC Glu Substation Operator Automatic ID Valentina Solomon 01/26/23 07:[address] Glu mg/dL 281 01/21/23 21:01 Hemoglobin A1c 11.4 % (0.0-6.0) H 01/21/23 21:01 Calcium 9.4 mg/dL (8.4-10.2) 01/21/23 21:01 Total Bilirubin 0.5 mg/dL (0.2-1.3) 01/21/23 21:01 AST 27 U/L (17-59) 01/21/23 21:01 ALT 22 U/L (4-49) 01/21/23 21:01 Alkaline Phosphatase 128 U/L (38-126) H 01/21/23 21:01 Total Protein 7.8 g/dL (6.3-8.2) 01/21/23 21:01 Albumin 4.9 g/dL (3.5-5.0) 01/21/23 21:01 Triglycerides 200.00 mg/dL (0.00-149.00) H 01/21/23 21:01 Cholesterol 221.00 mg/dL (0.00-200.00) H 01/21/23 21:01 LDL Cholesterol, Calc 143.1 mg/dL (0.0-131.0) H 01/21/23 21:01 VLDL Cholesterol, Calc 40.00 mg/dL (5.00-40.00) 01/21/23 21:01 HDL Cholesterol 37.90 mg/dL (40.00-60.00) L 01/21/23 21:01 Cholesterol/HDL Ratio 5.83 Ratio 01/21/23 21:01 TSH 0.636 mIU/L (0.465-4.680) 01/21/23 21:01 Serum Alcohol 164 mg/dL 01/21/23 21:01 Coronavirus (PCR) Not Detected (Not Detectd) 01/21/23 21:01 Vital Signs Temp 98.2 F 01/26/23 06:49 Pulse 54 L 01/26/23 06:49 Resp 14 01/26/23 06:49 BP 131/63 01/26/23 06:49 Pulse Ox 97 01/25/23 06:43 FiO2 Patient Condition at Discharge: Stable Plan - Discharge Summary Discharge Rx Participant: Yes New Discharge Prescriptions: New Insulin Detemir (Levemir) [Levemir] 10 unit SQ DAILY@0700 each Atorvastatin [Lipitor] 20 mg PO HS 30 Days #30 tab Melatonin 6 mg PO HS 30 Days #60 tab Naltrexone HCl [Revia] 50 mg PO DAILY 30 Days #30 tab Sertraline [Zoloft] 50 mg PO DAILY 30 Days #30 tab Folic Acid 1 mg PO DAILY 30 Days #30 tab Multivitamins, Thera [Multivitamin (formulary)] 1 each PO DAILY 30 Days #30 tab INSULIN ASPART (NovoLOG) [NovoLOG (formulary)] 0 unit SQ ACHS each Thiamine [Vitamin B-1] 100 mg PO DAILY 30 Days #30 tab Discharge Medication List Atorvastatin [Lipitor] 20 mg PO HS 30 Days #30 tab 01/26/23 [Rx] Folic Acid 1 mg PO DAILY 30 Days #30 tab 01/26/23 [Rx] INSULIN ASPART (NovoLOG) [NovoLOG (formulary)] 0 unit SQ ACHS each 01/26/23 [Rx] Insulin Detemir (Levemir) [Levemir] 10 unit SQ DAILY@0700 each 01/26/23 [Rx] Melatonin 6 mg PO HS 30 Days #60 tab 01/26/23 [Rx] Multivitamins, Thera [Multivitamin (formulary)] 1 each PO DAILY 30 Days #30 tab 01/26/23 [Rx] Naltrexone HCl [Revia] 50 mg PO DAILY 30 Days #30 tab 01/26/23 [Rx] Sertraline [Zoloft] 50 mg PO DAILY 30 Days #30 tab 01/26/23 [Rx] Thiamine [Vitamin B-1] 100 mg PO DAILY 30 Days #30 tab 01/26/23 [Rx] Follow up Appointment(s)/Referral(s): [facility] - 01/31/23 2:30 pm (Brittany Bryant) None,Stated [REFERRING] - 1-2 days Discharge Disposition: HOME SELF-CARE
[2023-01-26 12:57] LABS: Glucose,Whole Blood 146 mg/dL (70-110)
== END 2023-01-26 13:47 | disposition home or self-care (01) | DRG 881 ==
LOC: EC 19:59 → 3MHU 01-22 05:59
PROVIDERS: ADMIT Psychiatry & Neurology Psychiatry; ATTEND Psychiatry & Neurology Psychiatry
DX: F43.21 Adjustment disorder with depressed mood (principal); F41.9 Anxiety disorder, unspecified; F10.10 Alcohol abuse, uncomplicated; F12.10 Cannabis abuse, uncomplicated; Z71.41 Alcohol abuse counseling and surveillance of alcoholic; Z71.51 Drug abuse counseling and surveillance of drug abuser; Z28.310 Unvaccinated for COVID-19; Z20.822 Contact with and (suspected) exposure to COVID-19; Z28.21 Immunization not carried out because of patient refusal; E11.65 Type 2 diabetes mellitus with hyperglycemia; F17.210 Nicotine dependence, cigarettes, uncomplicated; E78.5 Hyperlipidemia, unspecified; R45.850 Homicidal ideations; Z91.51 Personal history of suicidal behavior; Z83.3 Family history of diabetes mellitus
CPT/HCPCS: 36415; 80053; 80061; 80320; 83036; 84443; 85025; 87635; 99285

== ENCOUNTER 2024-09-12 18:49 | Emergency (ER) | payer BC, MEDICAID, OTHER ==
[2024-09-12 19:13] VITALS: TEMP 98.5
--- NOTE | 2024-09-12 19:34 | ED ---
General Adult HPI - General Chief complaint: Extremity Injury, Upper Stated complaint: Left finger swollen Time Seen by Provider: 09/12/24 19:17 Source: patient, RN notes reviewed Mode of arrival: ambulatory Limitations: no limitations - History of Present Illness Initial comments: 39-year-old male presents to the emergency department for evaluation of left ring finger redness and swelling x 2 days. He notes that he clipped his fingernail too short and had a hangnail following this. Normal range of motion to the finger, no fever, chills. He is up to date on tetanus vaccine - Related Data Previous Rx's Medication Instructions Recorded Atorvastatin [Lipitor] 20 mg PO HS 30 Days #30 tab 01/26/23 Folic Acid 1 mg PO DAILY 30 Days #30 tab 01/26/23 Melatonin 6 mg PO HS 30 Days #60 tab 01/26/23 Multivitamins, Thera [Multivitamin 1 each PO DAILY 30 Days #30 tab 01/26/23 (formulary)] Naltrexone HCl [Revia] 50 mg PO DAILY 30 Days #30 tab 01/26/23 Sertraline [Zoloft] 50 mg PO DAILY 30 Days #30 tab 01/26/23 Thiamine [Vitamin B-1] 100 mg PO DAILY 30 Days #30 tab 01/26/23 glipiZIDE 5 mg PO DAILY 30 Days #30 tab 01/26/23 metFORMIN HCL [Glucophage] 500 mg PO BID 30 Days #60 tab 01/26/23 Amoxic-Pot Clav 875-125Mg 1 tab PO Q12HR #14 tab 09/12/24 [Augmentin 875-125] Allergies Allergy/AdvReac Type Severity Reaction Status Date / Time cat dander Allergy Cough Verified 09/12/24 19:11 dog dander Allergy Cough Verified 09/12/24 19:11 WHITE BIRCH TREE BARK Allergy Unknown Uncoded 09/12/24 19:11 Review of Systems ROS Statement: Those systems with pertinent positive or pertinent negative responses have been documented in the HPI. ROS Other: All systems not noted in ROS Statement are negative. Past Medical History Past Medical History: Diabetes Mellitus, Thyroid Disorder Additional Past Medical History / Comment(s): heart murmur History of Any Multi-Drug Resistant Organisms: None Reported Past Surgical History: Adenoidectomy, Orthopedic Surgery Additional Past Surgical History / Comment(s): tendon release rt arm Past Anesthesia/Blood Transfusion Reactions: No Reported Reaction Past Psychological History: No Psychological Hx Reported Smoking Status: Current every day smoker Past Alcohol Use History: Occasional Past Drug Use History: Marijuana - Past Family History Mother Family Medical History: Diabetes Mellitus General Exam Limitations: no limitations General appearance: alert, in no apparent distress Head exam: Present: atraumatic, normocephalic, normal inspection Eye exam: Present: normal appearance, PERRL, EOMI. Absent: scleral icterus, conjunctival injection, periorbital swelling Extremities exam: Present: full ROM, tenderness, normal capillary refill, other (Paronychia to the left ring finger) Neurological exam: Present: alert, oriented X3 Psychiatric exam: Present: normal affect, normal mood Skin exam: Present: warm, dry, intact, erythema. Absent: normal color Course Vital Signs 09/12/24 09/12/24 19:11 20:14 Temperature 98.5 F Pulse Rate 92 84 Respiratory 18 16 Rate Blood Pressure 135/95 145/84 O2 Sat by Pulse 97 98 Oximetry Medical Decision Making - Medical Decision Making Was pt. sent in by a medical professional or institution (, PA, UTILIZATION SPECIALIST, urgent care, hospital, or halfway...) When possible be specific @ -No Did you speak to anyone other than the patient for history (EMS, parent, family, police, friend...)? What history was obtained from this source @ -No Did you review nursing and triage notes (agree or disagree)? Why? @ -I reviewed and agree with nursing and triage notes Were old charts reviewed (outside hosp., previous admission, EMS record, old EKG, old radiological studies, urgent care reports/EKG's, halfway records)? Report findings @ -No old charts were reviewed Differential Diagnosis (chest pain, altered mental status, abdominal pain women, abdominal pain men, vaginal bleeding, weakness, fever, dyspnea, syncope, headache, dizziness, GI bleed, back pain, seizure, CVA, palpatations, mental health, musculoskeletal)? @ -Differential Musculoskeletal Muscular strain, contusion, ligament sprain, fracture, arthritis, septic arthritis, bursitis, cellulitis, muscle spasm, nerve compression, DVT, arterial occlusion, herpes zoster, electrolyte abnormality, tumor.... This is not meant to be in all inclusive list EKG interpreted by me (3pts min.). @ -None X-rays interpreted by me (1pt min.). @ -None done CT interpreted by me (1pt min.). @ -None done U/S interpreted by me (1pt. min.). @ -None done What testing was considered but not performed or refused? (CT, X-rays, U/S, labs)? Why? @ -None What meds were considered but not given or refused? Why? @ -None Did you discuss the management of the patient with other professionals (professionals i.e. , PA, UTILIZATION SPECIALIST, lab, RT, psych nurse, social services, admission discharge rn, teacher, debt recovery officer, pillowcase folder)? Give summary @ -No Was smoking cessation discussed for >3mins.? @ -No Was critical care preformed (if so, how long)? @ -No Were there social determinants of health that impacted care today? How? (Homelessness, low income, unemployed, alcoholism, drug addiction, transportatio n, low edu. Level, literacy, decrease access to med. care, group home, rehab)? @ -No Was there de-escalation of care discussed even if they declined (Discuss DNR or withdrawal of care, Hospice)? DNR status @ -No What co-morbidities impacted this encounter? (DM, HTN, Smoking, COPD, CAD, Cancer, CVA, ARF, Chemo, Hep., AIDS, mental health diagnosis, sleep apnea, morbid obesity)? @ -None Was patient admitted / discharged? Hospital course, mention meds given and route, prescriptions, significant lab abnormalities, going to OR and other pertinent info. @ -Discharge. Patient presented to the emergency department for evaluation of left ring finger distal redness and swelling. Clinical evaluation, patient has a paronychia to the left distal ring finger. I&D was performed. Patient will be started on antibiotics. Advised to pickler helper antibiotics and take to completion. Patient understanding agreeable plan. Patient stable at time of discharge. Case discussed with Dr. Mcnamara Undiagnosed new problem with uncertain prognosis? @ -No Drug Therapy requiring intensive monitoring for toxicity (Heparin, Nitro, Insulin, Cardizem)? @ -No Were any procedures done? @ -I&D Diagnosis/symptom? @ -Paronychia Acute, or Chronic, or Acute on Chronic? @ -Acute Uncomplicated (without systemic symptoms) or Complicated (systemic symptoms)? @ -Uncomplicated Side effects of treatment? @ -No Exacerbation, Progression, or Severe Exacerbation? @ -No Poses a threat to life or bodily function? How? (Chest pain, [place], [place], pneumonia, PE, COPD, DKA, ARF, appy, cholecystitis, CVA, Diverticulitis, Homicidal, Suicidal, threat to staff... and all critical care pts) @ -No Disposition Clinical Impression: Paronychia Disposition: HOME SELF-CARE Condition: Stable Instructions (If sedation given, give patient instructions): Paronychia (ED) Additional Instructions: Please pickler helper antibiotics and take to completion. Follow up with your primary care provider. Return to the emergency department for new or worsening symptoms. Prescriptions: Amoxic-Pot Clav 875-125Mg [Augmentin 875-125] 1 tab PO Q12HR #14 tab Is patient prescribed a controlled substance at d/c from ED?: No Referrals: Micah Duvall DO [Primary Care Provider] - 1-2 days
[2024-09-12] MEDS: AMOXIC-POT CLAV 875-125MG 1 EACH TAB PO STA (20:05)
[2024-09-12 20:15] VITALS: BP 145/84; PULSE 84; RESP 16
== END 2024-09-12 20:15 | disposition home or self-care (01) ==
LOC: EC 18:49
DX: L03.012 Cellulitis of left finger (principal); F17.200 Nicotine dependence, unspecified, uncomplicated; Z88.8 Allergy status to other drugs, medicaments and biological substances
CPT/HCPCS: 10060; 99283

== ENCOUNTER 2024-10-20 02:24 | Emergency (ER) | payer OTHER ==
[2024-10-20 02:28] VITALS: BP 165/102; PULSE 99; RESP 18; TEMP 97.6
--- NOTE | 2024-10-20 02:41 | ED ---
General Adult HPI - General Chief complaint: Dental/Oral Stated complaint: Oral Pain Time Seen by Provider: 10/20/24 02:25 Source: patient, RN notes reviewed, old records reviewed Mode of arrival: ambulatory - History of Present Illness Initial comments: Patient is a 39-year-old male with history of poor dentition, diabetes, who presents emergency department complaining of left upper tooth pain. States this started within the last day. Pain with chewing. Unknown which tooth it is as he has a history of multiple broken teeth. Denies any difficulty breathing or swallowing. Denies any facial swelling. Is tolerating oral intake. Denies any shortness of breath. Has no other acute complaints at this time. Has not seen a dentist. Presents for further evaluation. - Related Data Previous Rx's Medication Instructions Recorded Atorvastatin [Lipitor] 20 mg PO HS 30 Days #30 tab 01/26/23 Folic Acid 1 mg PO DAILY 30 Days #30 tab 01/26/23 Melatonin 6 mg PO HS 30 Days #60 tab 01/26/23 Multivitamins, Thera [Multivitamin 1 each PO DAILY 30 Days #30 tab 01/26/23 (formulary)] Naltrexone HCl [Revia] 50 mg PO DAILY 30 Days #30 tab 01/26/23 Sertraline [Zoloft] 50 mg PO DAILY 30 Days #30 tab 01/26/23 Thiamine [Vitamin B-1] 100 mg PO DAILY 30 Days #30 tab 01/26/23 glipiZIDE 5 mg PO DAILY 30 Days #30 tab 01/26/23 metFORMIN HCL [Glucophage] 500 mg PO BID 30 Days #60 tab 01/26/23 Amoxic-Pot Clav 875-125Mg 1 tab PO Q12HR #14 tab 09/12/24 [Augmentin 875-125] Allergies Allergy/AdvReac Type Severity Reaction Status Date / Time cat dander Allergy Cough Verified 10/20/24 02:28 dog dander Allergy Cough Verified 10/20/24 02:28 WHITE BIRCH TREE BARK Allergy Unknown Uncoded 10/20/24 02:28 Review of Systems ROS Statement: Those systems with pertinent positive or pertinent negative responses have been documented in the HPI. Review of Systems: CONST: Denies fever EYES: Denies blurry vision ENT: Endorses toothache C/V: Denies Chest pain RESP: Denies shortness of breath GI: Denies abdominal pain : Denies dysuria SKIN: Denies rash. MSK: Denies joint pain. NEURO: Denies headache ROS Other: All systems not noted in ROS Statement are negative. Past Medical History Past Medical History: Diabetes Mellitus, Thyroid Disorder Additional Past Medical History / Comment(s): heart murmur History of Any Multi-Drug Resistant Organisms: None Reported Past Surgical History: Adenoidectomy, Orthopedic Surgery Additional Past Surgical History / Comment(s): tendon release rt arm Past Anesthesia/Blood Transfusion Reactions: No Reported Reaction Past Psychological History: No Psychological Hx Reported Smoking Status: Current every day smoker Past Alcohol Use History: Occasional Past Drug Use History: Marijuana - Past Family History Mother Family Medical History: Diabetes Mellitus General Exam - General Exam Comments Initial Comments: General: Appears in no acute distress. HEAD: Normal with no signs of head trauma. EYES: EOMI. ENT: Hearing grossly intact. Multiple broken teeth. Overall poor dentition. No obvious evidence of abscess of the teeth. No stridor. No oropharyngeal swelling. No evidence of Ludewig's angina. RESPIRATORY: No respiratory distress. C/V: Regular rate and rhythm. ABD: Abdomen is nondistended. EXT: No obvious deformity. SKIN: No rashes or lesions observed on exposed skin. NEURO: Alert and oriented. Course Vital Signs 10/20/24 02:25 Temperature 97.6 F Pulse Rate 99 Respiratory 18 Rate Blood Pressure 165/102 O2 Sat by Pulse 100 Oximetry Medical Decision Making - Medical Decision Making Was pt. sent in by a medical professional or institution (, PA, ROSTER CLERK, urgent c are, hospital, or fpc...) When possible be specific @ -No Did you speak to anyone other than the patient for history (EMS, parent, family, police, friend...)? What history was obtained from this source @ -No Did you review nursing and triage notes (agree or disagree)? Why? @ -I reviewed and agree with nursing and triage notes Were old charts reviewed (outside hosp., previous admission, EMS record, old EKG, old radiological studies, urgent care reports/EKG's, fpc records)? Report findings @ -No old charts were reviewed Differential Diagnosis (chest pain, altered mental status, abdominal pain women, abdominal pain men, vaginal bleeding, weakness, fever, dyspnea, syncope, headache, dizziness, GI bleed, back pain, seizure, CVA, palpatations, mental health, musculoskeletal)? @ -Toothache, tooth infection, cavity. This list is not all inclusive. EKG interpreted by me (3pts min.). @ -None done X-rays interpreted by me (1pt min.). @ -None done CT interpreted by me (1pt min.). @ -None done U/S interpreted by me (1pt. min.). @ -None done What testing was considered but not performed or refused? (CT, X-rays, U/S, labs)? Why? @ -None What meds were considered but not given or refused? Why? @ -None Did you discuss the management of the patient with other professionals (professionals i.e. , PA, ROSTER CLERK, lab, RT, psych nurse, licensed master social worker, pharmacist manager, teacher, correction officer head, patient case manager)? Give summary @ -No Was smoking cessation discussed for >3mins.? @ -No Was critical care preformed (if so, how long)? @ -No Were there social determinants of health that impacted care today? How? (Homelessness, low income, unemployed, alcoholism, drug addiction, transportation, low edu. Level, literacy, decrease access to med. care, penitentiary, rehab)? @ -No Was there de-escalation of care discussed even if they declined (Discuss DNR or withdrawal of care, Hospice)? DNR status @ -No What co-morbidities impacted this encounter? (DM, HTN, Smoking, COPD, CAD, Cancer, CVA, ARF, Chemo, Hep., AIDS, mental health diagnosis, sleep apnea, morbid obesity)? @ -None Was patient admitted / discharged? Hospital course, mention meds given and route, prescriptions, significant lab abnormalities, going to OR and other pertinent info. @ -Presents with toothache. Has chronically poor dentition. Exam unremarkable except for what appears to be chronic poor dentition and cracked teeth. Patient will be administered a Tylenol 3 tablet as well as empirically started Augmentin as well as given a dose of Decadron. Patient was in agreement this plan. Recommended follow-up with dentistry. He will be given contact information. He was in agreement this plan. Strict return precautions discussed. I will provide the patient with a prescription for Augmentin. I instructed the patient to follow up with their PCP in the next 1-3 days. I provided contact information for follow up with oral surgery. I explained that the patient should return to the emergency department if they experience any worsening symptoms. Strict return precautions were discussed with the patient. The patient expressed understanding of these instructions. I answered all questions that the patient had. The patient was discharged home in good condition with their prescriptions and follow up information. Undiagnosed new problem with uncertain prognosis? @ -No Drug Therapy requiring intensive monitoring for toxicity (Heparin, Nitro, Insulin, Cardizem)? @ -No Were any procedures done? @ -No Diagnosis/symptom? @ -Toothache Acute, or Chronic, or Acute on Chronic? @ -Acute Uncomplicated (without systemic symptoms) or Complicated (systemic symptoms)? @ -Complicated Side effects of treatment? @ -No Exacerbation, Progression, or Severe Exacerbation? @ -No Poses a threat to life or bodily function? How? (Chest pain, [place], [place], pneumonia, PE, COPD, DKA, ARF, appy, cholecystitis, CVA, Diverticulitis, Homicidal, Suicidal, threat to staff... and all critical care pts) @ -Yes Disposition Clinical Impression: Toothache Disposition: HOME SELF-CARE Condition: Good Instructions (If sedation given, give patient instructions): Toothache (ED) Additional Instructions: Follow-up with dentist or oral surgery in the next 1 to 3 days. Is patient prescribed a controlled substance at d/c from ED?: No Referrals: None,Stated [Primary Care Provider] - 1-2 days Rogelio Rangel DDS [STAFF PHYSICIAN] - 1-2 days Time of Disposition: 02:40
[2024-10-20] MEDS: ACET/COD 300 MG/30 MG STARTER PACK 6 TAB BTL PO STA (02:51)
[2024-10-20] MEDS: AMOXIC-POT CLAV 875-125MG 1 EACH TAB PO STA (02:52)
[2024-10-20] MEDS: Acetaminophen-Codeine 300-30mg TAB PO STA (02:52)
[2024-10-20] MEDS: dexAMETHasone 4 MG TAB PO STA (02:52)
== END 2024-10-20 02:55 | disposition home or self-care (01) ==
LOC: EC 02:24
DX: K08.89 Other specified disorders of teeth and supporting structures (principal); F17.200 Nicotine dependence, unspecified, uncomplicated; Z91.048 Other nonmedicinal substance allergy status
CPT/HCPCS: 99282; J8540

== ENCOUNTER 2024-10-25 11:36 | Emergency (ER) | payer OTHER ==
[2024-10-25 11:46] VITALS: TEMP 97.6
[2024-10-25 11:47] LABS: Glucose,Whole Blood >600 mg/dL (70-110)
[2024-10-25 12:36] LABS: Basophils # (A) 0.2 k/uL (0-0.2); Basophils % (A) 1 %; Eosinophils % (A) 0 %; HCT 51.8 % (39.0-53.0); HGB 17.8 gm/dL (13.0-17.5); Lymphocytes # (A) 2.3 k/uL (1.0-4.8); Lymphocytes % (A) 6 %; MCH 30.2 pg (25.0-35.0); MCHC 34.3 g/dL (31.0-37.0); MCV 87.9 fL (80.0-100.0); Mean Platelet Volume 9.4; Monocytes # (A) 1.7 k/uL (0-1.0); Monocytes % (A) 4 %; Neutrophils # (A) 32.9 k/uL (1.3-7.7); Neutrophils % (A) 87 %; Platelet Count 423 k/uL (150-450); RBC 5.89 m/uL (4.30-5.90); RDW 12.6 % (11.5-15.5); WBC 37.7 k/uL (3.8-10.6)
--- NOTE | 2024-10-25 12:38 | ED ---
ENT HPI - General Source: patient, RN notes reviewed Mode of arrival: ambulatory Limitations: no limitations <Bonnie Conway - Last Filed: 10/25/24 19:17> <Ny Aleman - Last Filed: 10/26/24 17:41> - General Chief complaint: Dental/Oral Stated complaint: Oral Pain Time Seen by Provider: 10/25/24 12:36 - History of Present Illness Initial comments: 39-year-old male with history of uncontrolled type 2 diabetes presenting to the ER chief complaint of dental pain. States he was seen here in the ER 5 days ago where he was diagnosed with a dental abscess and was placed on antibiotics. Patient states abscess is not improving. Otherwise is tolerating orals well. Upon evaluation in triage, his blood sugar level is found to be greater than 600. Patient states he does have a history of known type 2 diabetes, however does not take any medication for this. Denies chest pain, shortness of breath, abdominal pain. Denies drug use. (Bonnie Conway) - Related Data Home Medications Medication Instructions Recorded Confirmed Acetaminophen-Codeine 300-30mg 1 tab PO Q4H PRN 10/25/24 10/25/24 [Tylenol w/codeine #3] Previous Rx's Medication Instructions Recorded Amoxic-Pot Clav 875-125Mg 1 tab PO BID 7 Days #14 tab 10/20/24 [Augmentin 875-125] Allergies Allergy/AdvReac Type Severity Reaction Status Date / Time cat dander Allergy Cough Verified 10/25/24 13:21 dog dander Allergy Cough Verified 10/25/24 13:21 WHITE BIRCH TREE BARK Allergy Unknown Uncoded 10/25/24 13:21 Review of Systems ROS Other: All systems not noted in ROS Statement are negative. <Bonnie Conway - Last Filed: 10/25/24 19:17> ROS Other: All systems not noted in ROS Statement are negative. <Ny Aleman - Last Filed: 10/26/24 17:41> ROS Statement: Those systems with pertinent positive or pertinent negative responses have been documented in the HPI. Past Medical History Past Medical History: Diabetes Mellitus, Thyroid Disorder Additional Past Medical History / Comment(s): heart murmur History of Any Multi-Drug Resistant Organisms: None Reported Past Surgical History: Adenoidectomy, Orthopedic Surgery Additional Past Surgical History / Comment(s): tendon release rt arm Past Anesthesia/Blood Transfusion Reactions: No Reported Reaction Past Psychological History: No Psychological Hx Reported Smoking Status: Current every day smoker Past Alcohol Use History: Occasional Past Drug Use History: Marijuana - Past Family History Mother Family Medical History: Diabetes Mellitus <Bonnie Conway - Last Filed: 10/25/24 19:17> General Exam Limitations: no limitations General appearance: alert, in no apparent distress Head exam: Present: atraumatic, normocephalic, normal inspection Eye exam: Present: normal appearance, PERRL, EOMI. Absent: scleral icterus, conjunctival injection, periorbital swelling ENT exam: Present: normal exam, mucous membranes moist, other (Chronically poor dentition with several fractured teeth, erythematous mass noted on roof of mouth) Neck exam: Present: normal inspection. Absent: tenderness, meningismus, lymphadenopathy Respiratory exam: Present: normal lung sounds bilaterally. Absent: respiratory distress, wheezes, rales, rhonchi, stridor Cardiovascular Exam: Present: regular rate, normal rhythm, normal heart sounds. Absent: systolic murmur, diastolic murmur, rubs, gallop, clicks GI/Abdominal exam: Present: soft, normal bowel sounds. Absent: distended, tenderness, guarding, rebound, rigid Neurological exam: Present: alert, oriented X3 Psychiatric exam: Present: normal affect, normal mood Skin exam: Present: warm, dry, intact, normal color. Absent: rash <Bonnie Conway - Last Filed: 10/25/24 19:17> Course Vital Signs 10/25/24 10/25/24 10/25/24 11:41 13:10 14:18 Temperature 97.6 F Pulse Rate 140 H 133 H 129 H Respiratory 24 22 22 Rate Blood Pressure 146/97 157/112 169/111 O2 Sat by Pulse 100 99 99 Oximetry 10/25/24 10/25/24 10/25/24 16:45 20:50 21:18 Temperature Pulse Rate 114 H 105 H 108 H Respiratory 20 18 18 Rate Blood Pressure 171/108 170/100 156/90 O2 Sat by Pulse 100 98 97 Oximetry Medical Decision Making - Lab Data Result diagrams: 10/25/24 12:00 10/25/24 15:53 - EKG Data -: EKG Interpreted by Ut <Bonnie Conway - Last Filed: 10/25/24 19:17> - Lab Data Result diagrams: 10/25/24 12:00 10/25/24 19:48 <HaitianNy - Last Filed: 10/26/24 17:41> - Medical Decision Making Was pt. sent in by a medical professional or institution (, PA, SCHOOL SPEECH LANGUAGE PATHOLOGIST, urgent care, hospital, or assisted...) When possible be specific @ -No Did you speak to anyone other than the patient for history (EMS, parent, family, police, friend...)? What history was obtained from this source @ -No Did you review nursing and triage notes (agree or disagree)? Why? @ -I reviewed and agree with nursing and triage notes Were old charts reviewed (outside hosp., previous admission, EMS record, old EKG, old radiological studies, urgent care reports/EKG's, assisted records)? Report findings @ -No old charts were reviewed Differential Diagnosis (chest pain, altered mental status, abdominal pain women, abdominal pain men, vaginal bleeding, weakness, fever, dyspnea, syncope, headache, dizziness, GI bleed, back pain, seizure, CVA, palpatations, mental health, musculoskeletal)? @ -Dental abscess, dental infection, hyperglycemia, DKA, HHS EKG interpreted by me (3pts min.). @ -As above X-rays interpreted by me (1pt min.). @ -None done CT interpreted by me (1pt min.). @ -CT face reveals periapical abscess noted to involve the upper left first bicuspid with bone destruction and abscess extending into roof of mouth and left nasal cavity/nasal turbinates, periosteal abscess at first bicuspid ill defined of left medial maxillary wall with moderate opacification U/S interpreted by me (1pt. min.). @ -None done What testing was considered but not performed or refused? (CT, X-rays, U/S, labs)? Why? @ -None What meds were considered but not given or refused? Why? @ -None Did you discuss the management of the patient with other professionals (professionals i.e. , PA, SCHOOL SPEECH LANGUAGE PATHOLOGIST, lab, RT, psych nurse, social worker psychiatric, attorney lawyer, teacher, compliance review officer, gearcase assembler)? Give summary @ -I spoke with Dr. Rojas from [facility], Dr. Gimenez on-call ENT, and Dr. Theodore on-call oral surgery who recommends transfer. I spoke with transfer team from [facility] who declines transfer due to no available beds Was smoking cessation discussed for >3mins.? @ -No Was critical care preformed (if so, how long)? @ -Yes, 45 minutes Were there social determinants of health that impacted care today? How? (Homelessness, low income, unemployed, alcoholism, drug addiction, transportation, low edu. Level, literacy, decrease access to med. care, half-way, rehab)? @ -No Was there de-escalation of care discussed even if they declined (Discuss DNR or withdrawal of care, Hospice)? DNR status @ -No What co-morbidities impacted this encounter? (DM, HTN, Smoking, COPD, CAD, Cancer, CVA, ARF, Chemo, Hep., AIDS, mental health diagnosis, sleep apnea, morbid obesity)? @ -None Was patient admitted / discharged? Hospital course, mention meds given and route, prescriptions, significant lab abnormalities, going to OR and other p ertinent info. @ -This is a 39-year-old male with history of uncontrolled type 2 diabetes presenting with dental abscess x 5 days. Patient has been taking oral antibiotics for 5 days with no improvement. Patient is tachycardic and tachypneic with initial blood glucose reading greater than 600. Lab work remarkable for leukocytosis of 37, sodium 128, glucose 700, lactic 3.0, pH 7.22, positive acetone. CT face reveals periapical abscess noted to involve upper left first bicuspid with bone destruction and abscess extending into roof of mouth and left nasal cavity/nasal turbinates. Patient was given IV insulin bolus and 2 L of IV fluids. He was then started on IV Unasyn dose, IV insulin drip and DKA protocol. Case was signed out to my ED attending Dr. Aleman at shift change pending disposition. (Bonnie Conway) Patient signed out to myself pending transfer. He is a 39-year-old gentleman with history of type 1 diabetes presenting today for left-sided dental abscess x 5 days. Found to have a left dental abscess with extension into the left nasal sinus on CT max face here. Also in DKA. Signed out to myself pending transfer. On my assessment patient resting comfortably, introduced myself and discussed plan for transfer to [facility]. We discussed risks and benefits of transfer, patient agreeable with plan .Patient also will be started on Ampho tericin given history of diabetes and extension of infection into the sinus. He was already given dose of Unasyn. A repeat basic panel was obtained that showed improving labs, anion gap now 22, previously was 34 blood glucose 359, bicarb 15, increased from 10, potassium 4.1. Patient accepted for transfer to [facility] by Dr. Marrero for oral surgery consult. Appreciate coordination of care. Updated patient plan of care, he is agreeable plan and plan for transfer.Patient transferred in stable condition. (Ny Aleman) - Lab Data Lab Results 10/25/24 10/25/24 10/25/24 Range/Units 11:46 12:00 12:00 WBC 37.7 H (3.8-10.6) k/uL RBC 5.89 (4.30-5.90) m/uL Hgb 17.8 H (13.0-17.5) gm/dL Hct 51.8 (39.0-53.0) % MCV 87.9 (80.0-100.0) fL MCH 30.2 (25.0-35.0) pg MCHC 34.3 (31.0-37.0) g/dL RDW 12.6 (11.5-15.5) % Plt Count 423 (150-450) k/uL MPV 9.4 Neutrophils % 87 % Lymphocytes % 6 % Monocytes % 4 % Eosinophils % 0 % Basophils % 1 % Neutrophils # 32.9 H (1.3-7.7) k/uL Lymphocytes # 2.3 (1.0-4.8) k/uL Monocytes # 1.7 H (0-1.0) k/uL Eosinophils # 0.0 (0-0.7) k/uL Basophils # 0.2 (0-0.2) k/uL Manual Slide Review Performed RBC Morphology Normal VBG pH (7.31-7.41) VBG pCO2 (37-51) mmHg VBG HCO3 (24-28) mmol/L Sodium 120 L (137-145) mmol/L Potassium 4.2 (3.5-5.1) mmol/L Chloride 76 L (98-107) mmol/L Carbon Dioxide 10 L (22-30) mmol/L Anion Gap 34 mmol/L BUN 44 H (9-20) mg/dL Creatinine 1.46 H (0.66-1.25) mg/dL Est GFR (CKD-EPI)AfAm 69 (>60 ml/min/1.73 sqM) Est GFR (CKD-EPI)NonAf 60 (>60 ml/min/1.73 sqM) Glucose 700 H* (74-99) mg/dL POC Glucose (mg/dL) >600 H* (70-110) mg/dL POC Glu Assembler Erector ID Brittany Ron Lactic Ac Sepsis Rflx Plasma Lactic Acid Moise (0.7-2.0) mmol/L Calcium 10.2 (8.4-10.2) mg/dL Phosphorus (2.5-4.5) mg/dL Total Bilirubin 0.6 (0.2-1.3) mg/dL AST 18 (17-59) U/L ALT 18 (4-49) U/L Alkaline Phosphatase 207 H (38-126) U/L Total Protein 7.9 (6.3-8.2) g/dL Albumin 5.1 H (3.5-5.0) g/dL Urine Color Urine Appearance (Clear) Urine pH (5.0-8.0) Ur Specific [place] (1.001-1.035) Urine Protein (Negative) Urine Glucose (UA) (Negative) Urine Ketones (Negative) Urine Blood (Negative) Urine Nitrite (Negative) Urine Bilirubin (Negative) Urine Urobilinogen (<2.0) mg/dL Ur Leukocyte Esterase (Negative) Acetone, Qual Positive (Negative) 10/25/24 10/25/24 10/25/24 Range/Units 12:00 13:14 13:18 WBC (3.8-10.6) k/uL RBC (4.30-5.90) m/uL Hgb (13.0-17.5) gm/dL Hct (39.0-53.0) % MCV (80.0-100.0) fL MCH (25.0-35.0) pg MCHC (31.0-37.0) g/dL RDW (11.5-15.5) % Plt Count (150-450) k/uL MPV Neutrophils % % Lymphocytes % % Monocytes % % Eosinophils % % Basophils % % Neutrophils # (1.3-7.7) k/uL Lymphocytes # (1.0-4.8) k/uL Monocytes # (0-1.0) k/uL Eosinophils # (0-0.7) k/uL Basophils # (0-0.2) k/uL Manual Slide Review RBC Morphology VBG pH (7.31-7.41) VBG pCO2 (37-51) mmHg VBG HCO3 (24-28) mmol/L Sodium (137-145) mmol/L Potassium (3.5-5.1) mmol/L Chloride (98-107) mmol/L Carbon Dioxide (22-30) mmol/L Anion Gap mmol/L BUN (9-20) mg/dL Creatinine (0.66-1.25) mg/dL Est GFR (CKD-EPI)AfAm (>60 ml/min/1.73 sqM) Est GFR (CKD-EPI)NonAf (>60 ml/min/1.73 sqM) Glucose (74-99) mg/dL POC Glucose (mg/dL) (70-110) mg/dL POC Glu Assembler Erector ID Lactic Ac Sepsis Rflx Y Plasma Lactic Acid Moise 3.0 H* (0.7-2.0) mmol/L Calcium (8.4-10.2) mg/dL Phosphorus (2.5-4.5) mg/dL Total Bilirubin (0.2-1.3) mg/dL AST (17-59) U/L ALT (4-49) U/L Alkaline Phosphatase (38-126) U/L Total Protein (6.3-8.2) g/dL Albumin (3.5-5.0) g/dL Urine Color Colorless Urine Appearance Clear (Clear) Urine pH 5.0 (5.0-8.0) Ur Specific [place] 1.022 (1.001-1.035) Urine Protein Trace H (Negative) Urine Glucose (UA) 4+ H (Negative) Urine Ketones 4+ H (Negative) Urine Blood Negative (Negative) Urine Nitrite Negative (Negative) Urine Bilirubin Negative (Negative) Urine Urobilinogen <2.0 (<2.0) mg/dL Ur Leukocyte Esterase Negative (Negative) Acetone, Qual (Negative) 10/25/24 10/25/24 10/25/24 Range/Units 13:18 14:04 15:53 WBC (3.8-10.6) k/uL RBC (4.30-5.90) m/uL Hgb (13.0-17.5) gm/dL Hct (39.0-53.0) % MCV (80.0-100.0) fL MCH (25.0-35.0) pg MCHC (31.0-37.0) g/dL RDW (11.5-15.5) % Plt Count (150-450) k/uL MPV Neutrophils % % Lymphocytes % % Monocytes % % Eosinophils % % Basophils % % Neutrophils # (1.3-7.7) k/uL Lymphocytes # (1.0-4.8) k/uL Monocytes # (0-1.0) k/uL Eosinophils # (0-0.7) k/uL Basophils # (0-0.2) k/uL Manual Slide Review RBC Morphology VBG pH 7.22 L (7.31-7.41) VBG pCO2 36 L (37-51) mmHg VBG HCO3 15 L (24-28) mmol/L Sodium 128 L (137-145) mmol/L Potassium 4.1 (3.5-5.1) mmol/L Chloride 91 L (98-107) mmol/L Carbon Dioxide 15 L (22-30) mmol/L Anion Gap 22 mmol/L BUN 35 H (9-20) mg/dL Creatinine 0.94 (0.66-1.25) mg/dL Est GFR (CKD-EPI)AfAm >90 (>60 ml/min/1.73 sqM) Est GFR (CKD-EPI)NonAf >90 (>60 ml/min/1.73 sqM) Glucose 359 H (74-99) mg/dL POC Glucose (mg/dL) 462 H (70-110) mg/dL POC Glu Assembler Erector ID Clemente Roth Lactic Ac Sepsis Rflx Plasma Lactic Acid Moise (0.7-2.0) mmol/L Calcium (8.4-10.2) mg/dL Phosphorus 3.8 (2.5-4.5) mg/dL Total Bilirubin (0.2-1.3) mg/dL AST (17-59) U/L ALT (4-49) U/L Alkaline Phosphatase (38-126) U/L Total Protein (6.3-8.2) g/dL Albumin (3.5-5.0) g/dL Urine Color Urine Appearance (Clear) Urine pH (5.0-8.0) Ur Specific [place] (1.001-1.035) Urine Protein (Negative) Urine Glucose (UA) (Negative) Urine Ketones (Negative) Urine Blood (Negative) Urine Nitrite (Negative) Urine Bilirubin (Negative) Urine Urobilinogen (<2.0) mg/dL Ur Leukocyte Esterase (Negative) Acetone, Qual (Negative) 10/25/24 10/25/24 10/25/24 Range/Units 15:53 16:51 18:08 WBC (3.8-10.6) k/uL RBC (4.30-5.90) m/uL Hgb (13.0-17.5) gm/dL Hct (39.0-53.0) % MCV (80.0-100.0) fL MCH (25.0-35.0) pg MCHC (31.0-37.0) g/dL RDW (11.5-15.5) % Plt Count (150-450) k/uL MPV Neutrophils % % Lymphocytes % % Monocytes % % Eosinophils % % Basophils % % Neutrophils # (1.3-7.7) k/uL Lymphocytes # (1.0-4.8) k/uL Monocytes # (0-1.0) k/uL Eosinophils # (0-0.7) k/uL Basophils # (0-0.2) k/uL Manual Slide Review RBC Morphology VBG pH (7.31-7.41) VBG pCO2 (37-51) mmHg VBG HCO3 (24-28) mmol/L Sodium (137-145) mmol/L Potassium (3.5-5.1) mmol/L Chloride (98-107) mmol/L Carbon Dioxide (22-30) mmol/L Anion Gap mmol/L BUN (9-20) mg/dL Creatinine (0.66-1.25) mg/dL Est GFR (CKD-EPI)AfAm (>60 ml/min/1.73 sqM) Est GFR (CKD-EPI)NonAf (>60 ml/min/1.73 sqM) Glucose (74-99) mg/dL POC Glucose (mg/dL) 350 H 358 H (70-110) mg/dL POC Glu Assembler Erector ID saturnino Goss Corrine Lactic Ac Sepsis Rflx Plasma Lactic Acid Moise 1.3 (0.7-2.0) mmol/L Calcium (8.4-10.2) mg/dL Phosphorus (2.5-4.5) mg/dL Total Bilirubin (0.2-1.3) mg/dL AST (17-59) U/L ALT (4-49) U/L Alkaline Phosphatase (38-126) U/L Total Protein (6.3-8.2) g/dL Albumin (3.5-5.0) g/dL Urine Color Urine Appearance (Clear) Urine pH (5.0-8.0) Ur Specific [place] (1.001-1.035) Urine Protein (Negative) Urine Glucose (UA) (Negative) Urine Ketones (Negative) Urine Blood (Negative) Urine Nitrite (Negative) Urine Bilirubin (Negative) Urine Urobilinogen (<2.0) mg/dL Ur Leukocyte Esterase (Negative) Acetone, Qual (Negative) 10/25/24 10/25/24 10/25/24 Range/Units 19:48 19:50 21:15 WBC (3.8-10.6) k/uL RBC (4.30-5.90) m/uL Hgb (13.0-17.5) gm/dL Hct (39.0-53.0) % MCV (80.0-100.0) fL MCH (25.0-35.0) pg MCHC (31.0-37.0) g/dL RDW (11.5-15.5) % Plt Count (150-450) k/uL MPV Neutrophils % % Lymphocytes % % Monocytes % % Eosinophils % % Basophils % % Neutrophils # (1.3-7.7) k/uL Lymphocytes # (1.0-4.8) k/uL Monocytes # (0-1.0) k/uL Eosinophils # (0-0.7) k/uL Basophils # (0-0.2) k/uL Manual Slide Review RBC Morphology VBG pH (7.31-7.41) VBG pCO2 (37-51) mmHg VBG HCO3 (24-28) mmol/L Sodium 125 L (137-145) mmol/L Potassium 4.8 (3.5-5.1) mmol/L Chloride 98 (98-107) mmol/L Carbon Dioxide 13 L (22-30) mmol/L Anion Gap 14 mmol/L BUN 25 H (9-20) mg/dL Creatinine 0.68 (0.66-1.25) mg/dL Est GFR (CKD-EPI)AfAm >90 (>60 ml/min/1.73 sqM) Est GFR (CKD-EPI)NonAf >90 (>60 ml/min/1.73 sqM) Glucose 459 H (74-99) mg/dL POC Glucose (mg/dL) 255 H 175 H (70-110) mg/dL POC Glu Assembler Erector ID saturnino Ovalle Lactic Ac Sepsis Rflx Plasma Lactic Acid Moise (0.7-2.0) mmol/L Calcium (8.4-10.2) mg/dL Phosphorus 2.3 L (2.5-4.5) mg/dL Total Bilirubin (0.2-1.3) mg/dL AST (17-59) U/L ALT (4-49) U/L Alkaline Phosphatase (38-126) U/L Total Protein (6.3-8.2) g/dL Albumin (3.5-5.0) g/dL Urine Color Urine Appearance (Clear) Urine pH (5.0-8.0) Ur Specific [place] (1.001-1.035) Urine Protein (Negative) Urine Glucose (UA) (Negative) Urine Ketones (Negative) Urine Blood (Negative) Urine Nitrite (Negative) Urine Bilirubin (Negative) Urine Urobilinogen (<2.0) mg/dL Ur Leukocyte Esterase (Negative) Acetone, Qual (Negative) - EKG Data EKG Comments: EKG reveals sinus tachycardia with no ST changes. Ventricular rate 126 bpm, MN interval 123, QRS duration 92, QT/QTc 290/365 (Bonnie Conway) Disposition <Bonnie Conway - Last Filed: 10/25/24 19:17> - Out of Hospital Transfer - Req. Specs Out of Hospital Transfer - Requested Specifics: Other Emergency Center ([facility]) <Ny Aleman - Last Filed: 10/26/24 17:41> Clinical Impression: Migratory dental abscess, Sinus abscess, DKA (diabetic ketoacidosis) Disposition: DC/TRNS INTERMEDIATE CARE FAC Condition: Stable Referrals: [facility] [REFERRING] - 11/15/24 2:00 pm (Contact office before appointment due to possible location change. Bring insurance card and ID card to appointment. You will have new patient paperwork to complete. Please bring bottles/vials of any medications that you are on.) Richar Hauser MD [REFERRING] - (Contact regarding payment plan. )
[2024-10-25 12:48] LABS: ALT 18 U/L (4-49); AST 18 U/L (17-59); African American GFR (CKD) 69 (>60 ml/min/1.73 sqM); Albumin 5.1 g/dL (3.5-5.0); Alkaline Phosphatase 207 U/L (38-126); Anion Gap 34 mmol/L; Blood Urea Nitrogen 44 mg/dL (9-20); Calcium 10.2 mg/dL (8.4-10.2); Carbon Dioxide 10 mmol/L (22-30); Chloride 76 mmol/L (98-107); Non-African American GFR(CKD) 60 (>60 ml/min/1.73 sqM); Potassium 4.2 mmol/L (3.5-5.1); Sodium 120 mmol/L (137-145); Total Bilirubin 0.6 mg/dL (0.2-1.3); Total Protein 7.9 g/dL (6.3-8.2)
[2024-10-25 13:12] LABS: Glucose 700 mg/dL (74-99)
[2024-10-25] MEDS: SODIUM CHLORIDE 0.9% 1,000 ML IV STA ×2 (13:12→14:18)
[2024-10-25] MEDS: INSULIN REGULAR 100 UNIT/ML VIAL (IV) IV ONE (13:12)
[2024-10-25 13:31] LABS: RBC Morphology Normal
[2024-10-25 13:32] LABS: Appearance,Urine Clear (Clear); Bilirubin,Urine Negative (Negative); Blood,Urine Negative (Negative); Color,Urine Colorless; Glucose,Urine (UA) 4+ (Negative); Leukocyte Esterase,Urine Negative (Negative); Nitrite,Urine Negative (Negative); Protein,Urine Trace (Negative); Specific Gravity,Urine 1.022 (1.001-1.035); Urobilinogen,Urine <2.0 mg/dL (<2.0)
[2024-10-25 13:35] LABS: VBG PH 7.22 (7.31-7.41)
[2024-10-25 14:06] LABS: Ketones,Urine 4+ (Negative)
[2024-10-25 14:07] LABS: Glucose,Whole Blood 462 mg/dL (70-110)
[2024-10-25 16:36] LABS: African American GFR (CKD) >90 (>60 ml/min/1.73 sqM); Anion Gap 22 mmol/L; Blood Urea Nitrogen 35 mg/dL (9-20); Carbon Dioxide 15 mmol/L (22-30); Chloride 91 mmol/L (98-107); Glucose 359 mg/dL (74-99); Non-African American GFR(CKD) >90 (>60 ml/min/1.73 sqM); Phosphorus 3.8 mg/dL (2.5-4.5); Potassium 4.1 mmol/L (3.5-5.1); Sodium 128 mmol/L (137-145)
[2024-10-25 16:53] LABS: Glucose,Whole Blood 350 mg/dL (70-110)
[2024-10-25] MEDS: AMPICILLIN-SULBACTAM 3 GM in SODIUM CHLORIDE 0.9% 100 ML IVPB STA (16:53)
[2024-10-25] MEDS: D5-0.45% NACL WITH KCL 20MEQ/L 1,000 ML IV SCH (16:56)
[2024-10-25] MEDS: INSULIN REGULAR 100 UNIT in SODIUM CHLORIDE 0.9% 100 ML IV SCH (16:58)
--- NOTE | 2024-10-25 17:00 | CT ---
EXAMINATION TYPE: CT facial bones w con DATE OF EXAM: 10/25/2024 COMPARISON: CLINICAL INDICATION: Male, 39 years old with history of dental abscess; PHH, tooth abscess TECHNIQUE: CT scan of the facial bones is performed with IV Contrast, patient injected with 80ml mL of Isovue [address] DLP: [address] CTDI: mGy Automated exposure control for dose reduction was used. TECHNIQUE: CT scan of the sinuses is performed without contrast, axial images are obtained, coronal r eformatted images are also reviewed. FINDINGS: Periapical abscess involving the upper left first bicuspid with bone destruction seen and small perio steal abscess measuring 7 mm. There is also abscess extending into the roof of the mouth with air-flu id level seen measuring 2.5 x 1.8 cm. There is also abscess noted extending into the left nasal cavit y and left-sided nasal turbinates with abscess noted measuring at least 4.8 x 1.9 cm. There is moder ate opacification of the left maxillary sinus with the medial wall of the maxillary sinus appearing s omewhat ill-defined. Additional osteomyelitis is not excluded. There is mild mucosal thickening right maxillary sinus. No additional bony destructive processes seen. Mild dental caries noted to involve the second bicuspid and without abscess. No additional abscesses seen. There is reactive adenopathy within the internal jugular chains measuring up to 11 mm. Visualized portion of mastoid air cells show no abnormal opacification. The globes are intact bilate rally. IMPRESSION: 1. There is periapical abscess noted to involve the upper left first bicuspid with bone destruction a nd abscess extending into the roof of the mouth and the left nasal cavity and nasal turbinates. There is also a small periosteal external abscess at the level of the first bicuspid. As noted there is il l-definition of the left medial maxillary wall with moderate opacification of the left maxillary sinu s. Additional infection is not excluded. There is evidence of reactive adenopathy. [facility], , 10/25/2024 4:58 PM
[2024-10-25] MEDS: SODIUM CHLORIDE 0.9% 1,000 ML IV SCH (17:03)
[2024-10-25 18:09] LABS: Glucose,Whole Blood 358 mg/dL (70-110)
[2024-10-25 19:52] LABS: Glucose,Whole Blood 255 mg/dL (70-110)
[2024-10-25] MEDS: ONDANSETRON 4 MG/2 ML VIAL IVP STA (19:55)
[2024-10-25] MEDS: MORPHINE SULFATE 4 MG/ML SYRINGE IVP STA (19:55)
[2024-10-25] MEDS: KETOROLAC 15 MG/ML 1 ML VIAL IVP STA (19:55)
[2024-10-25 20:12] LABS: African American GFR (CKD) >90 (>60 ml/min/1.73 sqM); Anion Gap 14 mmol/L; Blood Urea Nitrogen 25 mg/dL (9-20); Carbon Dioxide 13 mmol/L (22-30); Chloride 98 mmol/L (98-107); Glucose 459 mg/dL (74-99); Non-African American GFR(CKD) >90 (>60 ml/min/1.73 sqM); Phosphorus 2.3 mg/dL (2.5-4.5); Potassium 4.8 mmol/L (3.5-5.1); Sodium 125 mmol/L (137-145)
[2024-10-25] MEDS ORDERED: DEXTROSE 5% IV ONE (20:30)
[2024-10-25] MEDS ORDERED: AMPHOTERICIN B LIPOSOME IV ONE (20:30)
[2024-10-25] MEDS ORDERED: WATER IV ONE (20:30)
[2024-10-25 20:50] VITALS: RESP 18
[2024-10-25 21:16] LABS: Glucose,Whole Blood 175 mg/dL (70-110)
[2024-10-25 21:21] VITALS: BP 156/90; PULSE 108
== END 2024-10-25 21:28 ==
LOC: EC 11:36
DX: E11.10 Type 2 diabetes mellitus with ketoacidosis without coma (principal); K04.7 Periapical abscess without sinus; F17.200 Nicotine dependence, unspecified, uncomplicated; Z91.048 Other nonmedicinal substance allergy status; Z88.8 Allergy status to other drugs, medicaments and biological substances; Z83.3 Family history of diabetes mellitus
CPT/HCPCS: 36415; 80051; 80053; 82565; 82803; 82009; 83605; 84100; 82947; 84520; 85025; 81003; 87040; 70487; 99285; 96365; 96366; 96375; 96361; J2270; J2405; J0295; J1885; Q9967

== ENCOUNTER 2025-02-02 21:45 | Emergency (ER) | payer OTHER ==
[2025-02-02 21:57] LABS: Glucose,Whole Blood 203 mg/dL (70-110)
[2025-02-02] MEDS: SODIUM CHLORIDE 0.9% 1,000 ML IV SCH (22:03)
[2025-02-02] MEDS: ONDANSETRON 4 MG/2 ML VIAL IVP STA (22:03)
[2025-02-02] MEDS: ACETAMINOPHEN TAB 500 MG TAB PO STA (22:03)
[2025-02-02] MEDS: IBUPROFEN 800 MG TAB PO STA (22:03)
[2025-02-02] MEDS: LIDOCAINE 4% PATCH TOPICAL ONE (22:04)
[2025-02-02 22:43] LABS: African American GFR (CKD) >90 (>60 ml/min/1.73 sqM); Albumin 4.4 g/dL (3.5-5.0); Anion Gap 7 mmol/L; Blood Urea Nitrogen 21 mg/dL (9-20); Carbon Dioxide 27 mmol/L (22-30); Chloride 99 mmol/L (98-107); Glucose 210 mg/dL (74-99); Magnesium 1.9 mg/dL (1.6-2.3); Non-African American GFR(CKD) >90 (>60 ml/min/1.73 sqM); Potassium 5.1 mmol/L (3.5-5.1); Sodium 133 mmol/L (137-145); Total Bilirubin 0.4 mg/dL (0.2-1.3); Total Protein 7.2 g/dL (6.3-8.2)
[2025-02-02 22:44] LABS: ALT 11 U/L (4-49); AST 18 U/L (17-59); Alcohol <10 mg/dL; Alkaline Phosphatase 91 U/L (38-126)
[2025-02-02 22:47] LABS: INR 0.9 (<1.2); Partial Thromboplastin Time 29.1 sec (22.0-30.0); Prothrombin Time 10.2 sec (10.0-12.5)
--- NOTE | 2025-02-02 22:54 | ED ---
General Adult HPI - General Chief complaint: Weakness Stated complaint: Weakness Time Seen by Provider: 02/02/25 21:50 Source: patient, EMS, RN notes reviewed, old records reviewed Mode of arrival: EMS Limitations: no limitations - History of Present Illness Initial comments: Patient is a 39-year-old male who presents from [facility] for weakness. States he began having some bodyaches, generalized weakness this afternoon and evening. Endorses diarrhea that is nonbloody. Denies any cough, congestion. Does have a history of diabetes and his sugar was in the 200s. Denies any significant nausea or vomiting. Denies chest pain or shortness of breath. Denies abdominal pain. Does endorse midline spine pain that is atraumatic. States she just feels generally unwell. Presents for further evaluation at this time. Is in [facility] for methamphetamine abuse. Last used on January 19, 2025. - Related Data Home Medications Medication Instructions Recorded Confirmed Acetaminophen-Codeine 300-30mg 1 tab PO Q4H PRN 10/25/24 10/25/24 [Tylenol w/codeine #3] Previous Rx's Medication Instructions Recorded Amoxic-Pot Clav 875-125Mg 1 tab PO BID 7 Days #14 tab 10/20/24 [Augmentin 875-125] Allergies Allergy/AdvReac Type Severity Reaction Status Date / Time cat dander Allergy Cough Verified 10/25/24 13:21 dog dander Allergy Cough Verified 10/25/24 13:21 WHITE BIRCH TREE BARK Allergy Unknown Uncoded 10/25/24 13:21 Review of Systems ROS Statement: Those systems with pertinent positive or pertinent negative responses have been documented in the HPI. Review of Systems: CONST: Endorses fever EYES: Denies blurry vision ENT: Denies nasal congestion C/V: Denies Chest pain RESP: Denies shortness of breath GI: Denies abdominal pain : Denies dysuria SKIN: Denies rash. MSK: Endorses mid back pain, atraumatic. Endorses generalized bodyaches. NEURO: Denies headache ROS Other: All systems not noted in ROS Statement are negative. Past Medical History Past Medical History: Diabetes Mellitus, Thyroid Disorder Additional Past Medical History / Comment(s): heart murmur History of Any Multi-Drug Resistant Organisms: None Reported Past Surgical History: Adenoidectomy, Orthopedic Surgery Additional Past Surgical History / Comment(s): tendon release rt arm Past Anesthesia/Blood Transfusion Reactions: No Reported Reaction Past Psychological History: No Psychological Hx Reported Smoking Status: Current every day smoker Past Alcohol Use History: Occasional Past Drug Use History: Marijuana - Past Family History Mother Family Medical History: Diabetes Mellitus General Exam - General Exam Comments Initial Comments: General: Appears in no acute distress. HEAD: Normal with no signs of head trauma. EYES: EOMI ENT: Hearing grossly intact, normal oropharynx. Mildly dry mucous membranes. RESPIRATORY: Clear breath sounds bilaterally. No wheezes, rales, or rhonchi. C/V: Regular rate and rhythm. S1 and S2 auscultated, no edema, peripheral pulses 2+ and intact throughout ABD: Abd is soft, nontender, nondistended EXT: Normal range of motion, no obvious deformity SKIN: No rashes or lesions observed on exposed skin. NEURO: Alert and oriented x 4. Generalized weakness that is nonfocal. Limitations: no limitations Course Vital Signs 02/02/25 02/02/25 21:49 23:29 Temperature 100.2 F H 98.2 F Pulse Rate 86 74 Respiratory 20 18 Rate Blood Pressure 159/116 119/87 O2 Sat by Pulse 99 99 Oximetry Medical Decision Making - Medical Decision Making Was pt. sent in by a medical professional or institution (, PA, REVENUE FIELD AGENT, urgent care, hospital, or long term...) When possible be specific @ -Sent from [facility] for weakness. Did you speak to anyone other than the patient for history (EMS, parent, family, police, friend...)? What history was obtained from this source @ -No Did you review nursing and triage notes (agree or disagree)? Why? @ -I reviewed and agree with nursing and triage notes Were old charts reviewed (outside hosp., previous admission, EMS record, old EKG, old radiological studies, urgent care reports/EKG's, long term records)? Report findings @ -No old charts were reviewed Differential Diagnosis (chest pain, altered mental status, abdominal pain women, abdominal pain men, vaginal bleeding, weakness, fever, dyspnea, syncope, headache, dizziness, GI bleed, back pain, seizure, CVA, palpatations, mental h ealth, musculoskeletal)? @ -Differential Weakness: Hypoglycemia, shock, sepsis, hyponatremia, anemia, infection, OR, ETOH, adverse medicine reaction, overdose, stroke, this is not meant to be an all-inclusive list. EKG interpreted by me (3pts min.). @ -As above X-rays interpreted by me (1pt min.). @ -Chest x-ray reveals no obvious acute cardiopulmonary process. Thoracic spine x-ray shows no obvious acute process. CT interpreted by me (1pt min.). @ -None done U/S interpreted by me (1pt. min.). @ -None done What testing was considered but not performed or refused? (CT, X-rays, U/S, labs)? Why? @ -None What meds were considered but not given or refused? Why? @ -None Did you discuss the management of the patient with other professionals (professionals i.e. , PA, REVENUE FIELD AGENT, lab, RT, psych nurse, social sciences research scientist, oil distributor tender, teacher, property disposal officer, insurance case manager)? Give summary @ -No Was smoking cessation discussed for >3mins.? @ -No Was critical care preformed (if so, how long)? @ -No Were there social determinants of health that impacted care today? How? (Homelessness, low income, unemployed, alcoholism, drug addiction, transportation, low edu. Level, literacy, decrease access to med. care, long-term, rehab)? @ -No Was there de-escalation of care discussed even if they declined (Discuss DNR or withdrawal of care, Hospice)? DNR status @ -No What co-morbidities impacted this encounter? (DM, HTN, Smoking, COPD, CAD, Cancer, CVA, ARF, Chemo, Hep., AIDS, mental health diagnosis, sleep apnea, morbid obesity)? @ -None Was patient admitted / discharged? Hospital course, mention meds given and route, prescriptions, significant lab abnormalities, going to OR and other pertinent info. @ -Based on the patient's presentation and physical exam, he does have a low- grade fever. Concern for likely infectious etiology for his current complaints. We will obtain labs, screen for DKA, and symptomatically treat the patient with IV fluids, oral Motrin and Tylenol, lidocaine patch for his back pain as well as IV Zofran. He was in agreement this plan. Vital signs are within acceptable li mits other than the fever. EKG shows no signs of acute ischemia. Imaging returned unremarkable. Laboratory studies are remarkable for mild leukocytosis of 16 which is likely reactive. No evidence of DKA. Mild hyponatremia of 133. Workup otherwise unremarkable. On reevaluation, patient is feeling improved, tolerating oral intake, with improved fevers and vital signs are within acceptable limits. He has no complaints at this time. I discussed with him he probably has some form of viral illness. He is in close contact with many other individuals at [facility]. Recommended symptomatic treatment with Tylenol and Motrin for pain and return to the ER for any worsening symptoms. He was in agreement this plan. He has no acute complaints at this time. He is feeling improved. I instructed the patient to follow up with their PCP in the next 1-3 days. I explained that the patient should return to the emergency department if they experience any worsening symptoms. Strict return precautions were discussed with the patient. The patient expressed understanding of these instructions. I answered all questions that the patient had. The patient was discharged home in good condition with their prescriptions and follow up information. Undiagnosed new problem with uncertain prognosis? @ -No Drug Therapy requiring intensive monitoring for toxicity (Heparin, Nitro, Insulin, Cardizem)? @ -No Were any procedures done? @ -No Diagnosis/symptom? @ -Viral syndrome, dehydration Acute, or Chronic, or Acute on Chronic? @ -Acute Uncomplicated (without systemic symptoms) or Complicated (systemic symptoms)? @ -Uncomplicated Side effects of treatment? @ -None Exacerbation, Progression, or Severe Exacerbation] @ -No Poses a threat to life or bodily function? @ -Unlikely at this time - Lab Data Result diagrams: 02/02/25 21:57 02/02/25 21:57 Lab Results 02/02/25 02/02/25 02/02/25 Range/Units 21:56 21:57 21:57 WBC 16.6 H (3.8-10.6) k/uL RBC 5.66 (4.30-5.90) m/uL Hgb 16.1 (13.0-17.5) gm/dL Hct 48.9 (39.0-53.0) % MCV 86.4 (80.0-100.0) fL MCH 28.5 (25.0-35.0) pg MCHC 33.0 (31.0-37.0) g/dL RDW 13.0 (11.5-15.5) % Plt Count 300 (150-450) k/uL MPV 8.0 PT 10.2 (10.0-12.5) sec INR 0.9 (<1.2) APTT 29.1 (22.0-30.0) sec VBG pH (7.31-7.41) VBG pCO2 (37-51) mmHg VBG HCO3 (24-28) mmol/L Sodium (137-145) mmol/L Potassium (3.5-5.1) mmol/L Chloride (98-107) mmol/L Carbon Dioxide (22-30) mmol/L Anion Gap mmol/L BUN (9-20) mg/dL Creatinine (0.66-1.25) mg/dL Est GFR (CKD-EPI)AfAm (>60 ml/min/1.73 sqM) Est GFR (CKD-EPI)NonAf (>60 ml/min/1.73 sqM) Glucose (74-99) mg/dL POC Glucose (mg/dL) 203 H (70-110) mg/dL POC Glu Senior Living Sales Counselor ID Lewellen Hermann Plasma Lactic Acid Moise (0.7-2.0) mmol/L Calcium (8.4-10.2) mg/dL Magnesium (1.6-2.3) mg/dL Total Bilirubin (0.2-1.3) mg/dL AST (17-59) U/L ALT (4-49) U/L Alkaline Phosphatase (38-126) U/L Total Protein (6.3-8.2) g/dL Albumin (3.5-5.0) g/dL Urine Color Urine Appearance (Clear) Urine pH (5.0-8.0) Ur Specific Dane (1.001-1.035) Urine Protein (Negative) Urine Glucose (UA) (Negative) Urine Ketones (Negative) Urine Blood (Negative) Urine Nitrite (Negative) Urine Bilirubin (Negative) Urine Urobilinogen (<2.0) mg/dL Ur Leukocyte Esterase (Negative) Serum Alcohol mg/dL Acetone, Qual (Negative) Influenza Type A (PCR) (Not Detectd) Influenza Type B (PCR) (Not Detectd) RSV (PCR) (Not Detectd) SARS-CoV-2 (PCR) (Not Detectd) 02/02/25 02/02/25 02/02/25 Range/Units 21:57 22:07 22:15 WBC (3.8-10.6) k/uL RBC (4.30-5.90) m/uL Hgb (13.0-17.5) gm/dL Hct (39.0-53.0) % MCV (80.0-100.0) fL MCH (25.0-35.0) pg MCHC (31.0-37.0) g/dL RDW (11.5-15.5) % Plt Count (150-450) k/uL MPV PT (10.0-12.5) sec INR (<1.2) APTT (22.0-30.0) sec VBG pH (7.31-7.41) VBG pCO2 (37-51) mmHg VBG HCO3 (24-28) mmol/L Sodium 133 L (137-145) mmol/L Potassium 5.1 (3.5-5.1) mmol/L Chloride 99 (98-107) mmol/L Carbon Dioxide 27 (22-30) mmol/L Anion Gap 7 mmol/L BUN 21 H (9-20) mg/dL Creatinine 0.66 (0.66-1.25) mg/dL Est GFR (CKD-EPI)AfAm >90 (>60 ml/min/1.73 sqM) Est GFR (CKD-EPI)NonAf >90 (>60 ml/min/1.73 sqM) Glucose 210 H (74-99) mg/dL POC Glucose (mg/dL) (70-110) mg/dL POC Glu Senior Living Sales Counselor ID Plasma Lactic Acid Moise 1.2 (0.7-2.0) mmol/L Calcium 10.0 (8.4-10.2) mg/dL Magnesium 1.9 (1.6-2.3) mg/dL Total Bilirubin 0.4 (0.2-1.3) mg/dL AST 18 (17-59) U/L ALT 11 (4-49) U/L Alkaline Phosphatase 91 (38-126) U/L Total Protein 7.2 (6.3-8.2) g/dL Albumin 4.4 (3.5-5.0) g/dL Urine Color Colorless Urine Appearance Clear (Clear) Urine pH 6.5 (5.0-8.0) Ur Specific Dane 1.023 (1.001-1.035) Urine Protein Negative (Negative) Urine Glucose (UA) 4+ H (Negative) Urine Ketones Negative (Negative) Urine Blood Negative (Negative) Urine Nitrite Negative (Negative) Urine Bilirubin Negative (Negative) Urine Urobilinogen <2.0 (<2.0) mg/dL Ur Leukocyte Esterase Negative (Negative) Serum Alcohol <10 mg/dL Acetone, Qual Negative (Negative) Influenza Type A (PCR) (Not Detectd) Influenza Type B (PCR) (Not Detectd) RSV (PCR) (Not Detectd) SARS-CoV-2 (PCR) (Not Detectd) 02/02/25 02/02/25 Range/Units 23:35 23:35 WBC (3.8-10.6) k/uL RBC (4.30-5.90) m/uL Hgb (13.0-17.5) gm/dL Hct (39.0-53.0) % MCV (80.0-100.0) fL MCH (25.0-35.0) pg MCHC (31.0-37.0) g/dL RDW (11.5-15.5) % Plt Count (150-450) k/uL MPV PT (10.0-12.5) sec INR (<1.2) APTT (22.0-30.0) sec VBG pH 7.38 (7.31-7.41) VBG pCO2 47 (37-51) mmHg VBG HCO3 28 (24-28) mmol/L Sodium (137-145) mmol/L Potassium (3.5-5.1) mmol/L Chloride (98-107) mmol/L Carbon Dioxide (22-30) mmol/L Anion Gap mmol/L BUN (9-20) mg/dL Creatinine (0.66-1.25) mg/dL Est GFR (CKD-EPI)AfAm (>60 ml/min/1.73 sqM) Est GFR (CKD-EPI)NonAf (>60 ml/min/1.73 sqM) Glucose (74-99) mg/dL POC Glucose (mg/dL) (70-110) mg/dL POC Glu Senior Living Sales Counselor ID Plasma Lactic Acid Moise (0.7-2.0) mmol/L Calcium (8.4-10.2) mg/dL Magnesium (1.6-2.3) mg/dL Total Bilirubin (0.2-1.3) mg/dL AST (17-59) U/L ALT (4-49) U/L Alkaline Phosphatase (38-126) U/L Total Protein (6.3-8.2) g/dL Albumin (3.5-5.0) g/dL Urine Color Urine Appearance (Clear) Urine pH (5.0-8.0) Ur Specific Dane (1.001-1.035) Urine Protein (Negative) Urine Glucose (UA) (Negative) Urine Ketones (Negative) Urine Blood (Negative) Urine Nitrite (Negative) Urine Bilirubin (Negative) Urine Urobilinogen (<2.0) mg/dL Ur Leukocyte Esterase (Negative) Serum Alcohol mg/dL Acetone, Qual (Negative) Influenza Type A (PCR) Not Detected (Not Detectd) Influenza Type B (PCR) Not Detected (Not Detectd) RSV (PCR) Not Detected (Not Detectd) SARS-CoV-2 (PCR) Not Detected (Not Detectd) - EKG Data -: EKG Interpreted by Me EKG Comments: 12-lead Electrocardiogram Interpretation Note EKG was reviewed and interpreted by myself. 12-lead ECG performed at 2152 is interpreted by me as revealing normal sinus rhythm at a rate of 86 beats per minute. [place] is normal. MT interval is 157 ms, QRS duration is 88 ms, QTc is 3 to 91 ms.. There were no ST or T wave abnormalities to suggest myocardial ischemia or injury. R wave progression across the precordium was satisfactory. By my interpretation this EKG is non-diagnostic for acute ischemia. Disposition Clinical Impression: Viral syndrome, Dehydration Disposition: HOME SELF-CARE Condition: Good Additional Instructions: Diagnosis today is dehydration with viral syndrome. Your workup was otherwise unremarkable. Treat fevers at [facility] with Tylenol and Motrin. Return to the ER for any worsening symptoms. Follow-up with your PCP in the next 1 to 3 days. Is patient prescribed a controlled substance at d/c from ED?: No Referrals: Tish Vallecillo MD [Primary Care Provider] - 1-2 days Time of Disposition: 00:32
[2025-02-02 23:06] LABS: Appearance,Urine Clear (Clear); Bilirubin,Urine Negative (Negative); Blood,Urine Negative (Negative); Color,Urine Colorless; Glucose,Urine (UA) 4+ (Negative); Ketones,Urine Negative (Negative); Leukocyte Esterase,Urine Negative (Negative); Nitrite,Urine Negative (Negative); PH, Urine 6.5 (5.0-8.0); Protein,Urine Negative (Negative); Specific Gravity,Urine 1.023 (1.001-1.035); Urobilinogen,Urine <2.0 mg/dL (<2.0)
[2025-02-02 23:07] LABS: Basophils # (A) 0.2 k/uL (0-0.2); Basophils % (A) 1 %; Eosinophils # (A) 0.3 k/uL (0-0.7); Eosinophils % (A) 2 %; HCT 48.9 % (39.0-53.0); HGB 16.1 gm/dL (13.0-17.5); Lymphocytes # (A) 7.1 k/uL (1.0-4.8); Lymphocytes % (A) 43 %; MCH 28.5 pg (25.0-35.0); MCV 86.4 fL (80.0-100.0); Monocytes # (A) 0.9 k/uL (0-1.0); Monocytes % (A) 5 %; Neutrophils # (A) 7.8 k/uL (1.3-7.7); Neutrophils % (A) 47 %; Platelet Count 300 k/uL (150-450); RBC 5.66 m/uL (4.30-5.90); WBC 16.6 k/uL (3.8-10.6)
--- NOTE | 2025-02-02 23:27 | XR ---
EXAM: XR Chest, 2 Views CLINICAL HISTORY: ITS.REASON XR Reason: Weakness TECHNIQUE: Frontal and lateral views of the chest. COMPARISON: No relevant prior studies available. FINDINGS: Lungs: No consolidation. No overt edema. Pleural space: No pleural effusion. No pneumothorax. Heart: Unremarkable. No cardiomegaly. Bones/joints: Unremarkable. No fracture or malalignment. IMPRESSION: No acute cardiopulmonary abnormality.
--- NOTE | 2025-02-02 23:28 | XR ---
EXAM: XR Thoracic Spine, 2 Views CLINICAL HISTORY: ITS.REASON XR Reason: mid thoracic spine pain, atraumatic TECHNIQUE: Frontal and lateral views of the thoracic spine. COMPARISON: No relevant prior studies available. FINDINGS: Vertebrae: Unremarkable. No acute fracture. Normal alignment. IMPRESSION: No acute abnormality.
[2025-02-02 23:31] VITALS: RESP 18; TEMP 98.2
[2025-02-02 23:49] LABS: VBG PH 7.38 (7.31-7.41)
[2025-02-03 00:23] LABS: Influenza A Not Detected (Not Detectd); Influenza B Not Detected (Not Detectd); RSV Not Detected (Not Detectd)
[2025-02-03 00:49] VITALS: BP 129/78; PULSE 81
== END 2025-02-03 00:52 | disposition home or self-care (01) ==
LOC: SUPCPDRO 21:45 → EC 21:45
DX: E86.0 Dehydration (principal); B34.9 Viral infection, unspecified; E11.9 Type 2 diabetes mellitus without complications; F15.10 Other stimulant abuse, uncomplicated; F17.200 Nicotine dependence, unspecified, uncomplicated; Z88.8 Allergy status to other drugs, medicaments and biological substances
CPT/HCPCS: 36415; 93005; 80053; 82803; 82009; 83605; 83735; 85025; 85610; 85730; 81003; 87636; 72070; 71046; 99285; 96374; 96361; G0480; J2405; 80320